=== PATIENT | female | born 1990 ===

== ENCOUNTER 2020-11-01 23:35 | Inpatient (IN) | payer SELFPAY ==
[2020-11-02] MEDS ORDERED: Acetaminophen 500 MG Tab PO ONE (00:08)
[2020-11-02] MEDS ORDERED: Sodium Chloride 0.9% 2.5 ML Syringe FLUSH PRN (01:48)
[2020-11-02] MEDS ORDERED: Water For Irrigation,Sterile 1,000 ML Container IRR PRN (01:48)
[2020-11-02] MEDS ORDERED: Misoprostol 200 MCG Tab PO PRN (01:48)
[2020-11-02] MEDS ORDERED: Ondansetron 4 MG/2 ML SDV IVPUSH PRN ×3 (01:48→20:46)
[2020-11-02] MEDS ORDERED: Lidocaine 1% 50 ML MDV INJECT PRN (01:48)
[2020-11-02] MEDS ORDERED: Carboprost Tromethamine 250 MCG/1 ML Amp IM PRN (01:48)
[2020-11-02] MEDS ORDERED: Nalbuphine 10 MG/1 ML Vial IVPUSH PRN (01:48)
[2020-11-02] MEDS ORDERED: Methylergonovine 0.2 MG/1 ML Amp IM PRN ×3 (01:48→20:46)
[2020-11-02] MEDS ORDERED: Sodium Chloride 0.9% 10 ML Syringe FLUSH PRN (01:48)
[2020-11-02] MEDS ORDERED: Ampicillin 2 GM in Sodium Chloride 0.9% 100 ML IV ONE (01:48)
[2020-11-02] MEDS ORDERED: Misoprostol 25 MCG (1/4 of 100 MCG) Tab VAG PRN ×2 (01:48)
[2020-11-02] MEDS ORDERED: Tranexamic Acid 1,000 MG in Sodium Chloride 0.9% 100 ML IV PRN ×3 (01:48→20:46)
[2020-11-02] MEDS ORDERED: Sodium Chloride 0.9% 10 ML SDV IV PRN (01:48)
[2020-11-02] MEDS ORDERED: Terbutaline 1 MG/ML SDV SUBCUT PRN (01:48)
[2020-11-02] MEDS ORDERED: Misoprostol 25 MCG (1/4 of 100 MCG) Tab PO ONE ×2 (01:55→10:54)
[2020-11-02] MEDS ORDERED: Oxytocin/0.9 % Sodium Chloride 30 UNIT/500 ML BAG IV SCH ×2 (02:00)
[2020-11-02] MEDS: Lactated Ringers 1,000 ML IV SCH ×3 (02:50→14:45)
[2020-11-02] MEDS ORDERED: Ampicillin 1 GM in Sodium Chloride 0.9% 50 ML IV SCH (03:00)
[2020-11-02] MEDS ORDERED: Misoprostol 25 MCG (1/4 of 100 MCG) Tab PO SCH (04:00)
[2020-11-02] MEDS: Butorphanol 1 MG/ML SDV IVPUSH PRN ×2 (04:31→07:02)
--- NOTE | 2020-11-02 07:57 | PCM.LDHP ---
L&D History of Present Illness - General Date of Service: 11/02/20 Admit Problem/Dx: Patient Status Order with Admit Dx/Problem 11/01/20 23:49 Patient Status [ADT] Routine 11/02/20 01:48 Patient Status [ADT] Routine Admission Diagnosis/Problem Admission Diagnosis/Problem 11/02/20 07:52 presenting to L&D at 39 5/7 weeks (MARIA E: 11/04/20 by ultrasound) with reports of regular uterine contractions and increasing pain with contractions. SVE per nurse report on admission: long, thick, closed. O+, Rubella immune, GBS positive. Vertex presentation by Rodney. Relatively uneventful with the exception of patient's pre- BMI of >40. 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, - Infectious Disease History Infectious Disease History: Reports: Chicken Pox - Past Surgical History GI Surgical History: Reports: Appendectomy Social & Family History - Family History Family Medical History: No Pertinent Family History - Tobacco Use Tobacco Use Status *Q: Never Tobacco User Second Hand Smoke Exposure: No - Caffeine Use Caffeine Use: Reports: Coffee, Energy Drinks, Soda - Recreational Drug Use Recreational Drug Use: Yes Drug Use in Last 12 Months: No Recreational Drug Type: Reports: Marijuana/Hashish Recreational Drug Use Frequency: Rarely H&P Review of Systems - Review of Systems: Review Of Systems: See Below General: Reports: No Symptoms HEENT: Reports: No Symptoms Pulmonary: Reports: No Symptoms Cardiovascular: Reports: No Symptoms Gastrointestinal: Reports: No Symptoms Genitourinary: Reports: No Symptoms Musculoskeletal: Reports: No Symptoms Skin: Reports: No Symptoms Psychiatric: Reports: No Symptoms Neurological: Reports: No Symptoms Hematologic/Lymphatic: Reports: No Symptoms Immunologic: Reports: No Symptoms L&D Exam - Exam Exam: See Below - Vital Signs Weight: 233 lb - OB Specific Contraction Intensity: Moderate Movement: Active Heart Tones: Present Heart Rate (FHR) Variability: Moderate (6-25 bmp) Presentation: Vertex (by Rodney) - Alonso Score Alonso Score Cervix Position: Posterior Alonso Score Consistency: Firm Alonso Score Effacement: 0-30% Alonso Score Dilation: Closed Alonso Score Infant's Station: -3 Alonso Score Total: 0 - Exam General: Alert, Oriented, Cooperative Lungs: Normal Respiratory Effort Cardiovascular: Regular Rate, Regular Rhythm GI/Abdominal Exam: Soft, Non-Tender Rectal Exam: Deferred Genitourinary: Deferred Back Exam: Normal Inspection, Full Range of Motion Extremities: Normal Inspection, Normal Range of Motion, Non-Tender, Normal Capillary Refill Skin: Warm, Dry, Intact Neurological: Strength Equal Bilateral, Normal Speech, Normal Tone, Sensation Intact Psychiatric: Alert, Normal Affect, Normal Mood - Patient Data Lab Results Last 24 hrs: Laboratory Results - last 24 hr 11/01/20 11/01/20 11/02/20 Range/Units 00:00 23:45 00:20 WBC (4.0-11.0) K/uL RBC (4.30-5.90) M/uL Hgb (12.0-16.0) g/dL Hct (36.0-46.0) % MCV (80.0-98.0) fL MCH (27.0-32.0) pg MCHC (31.0-37.0) g/dL RDW Std Deviation (28.0-62.0) fl RDW Coeff of Emily (11.0-15.0) % Plt Count (150-400) K/uL MPV (7.40-12.00) fL Nucleated RBC % /100WBC Nucleated RBCs # K/uL Urine Color YELLOW Urine Appearance CLEAR Urine pH 6.0 (5.0-8.0) Ur Specific [place] 1.010 (1.001-1.035) Urine Protein NEGATIVE (NEGATIVE) mg/dL Urine Glucose (UA) NEGATIVE (NEGATIVE) mg/dL Urine Ketones 15 H (NEGATIVE) mg/dL Urine Occult Blood NEGATIVE (NEGATIVE) Urine Nitrite NEGATIVE (NEGATIVE) Urine Bilirubin NEGATIVE (NEGATIVE) Urine Urobilinogen 0.2 (<2.0) EU/dL Ur Leukocyte Esterase NEGATIVE (NEGATIVE) Urine RBC 0-2 (0-2/HPF) Urine WBC 0-2 (0-5/HPF) Ur Epithelial Cells FEW (NONE-FEW) Urine Bacteria FEW (NEGATIVE) Membrane Rupture NEGATIVE SARS-CoV-2 RNA (ANU) NEGATIVE (NEGATIVE) Blood Type Antibody Screen 11/02/20 11/02/20 Range/Units 02:30 02:30 WBC 16.95 H (4.0-11.0) K/uL RBC 4.39 (4.30-5.90) M/uL Hgb 13.6 (12.0-16.0) g/dL Hct 39.4 (36.0-46.0) % MCV 89.7 (80.0-98.0) fL MCH 31.0 (27.0-32.0) pg MCHC 34.5 (31.0-37.0) g/dL RDW Std Deviation 44.2 (28.0-62.0) fl RDW Coeff of Emily 13 (11.0-15.0) % Plt Count 239 (150-400) K/uL MPV 10.80 (7.40-12.00) fL Nucleated RBC % 0.0 /100WBC Nucleated RBCs # 0 K/uL Urine Color Urine Appearance Urine pH (5.0-8.0) Ur Specific [place] (1.001-1.035) Urine Protein (NEGATIVE) mg/dL Urine Glucose (UA) (NEGATIVE) mg/dL Urine Ketones (NEGATIVE) mg/dL Urine Occult Blood (NEGATIVE) Urine Nitrite (NEGATIVE) Urine Bilirubin (NEGATIVE) Urine Urobilinogen (<2.0) EU/dL Ur Leukocyte Esterase (NEGATIVE) Urine RBC (0-2/HPF) Urine WBC (0-5/HPF) Ur Epithelial Cells (NONE-FEW) Urine Bacteria (NEGATIVE) Membrane Rupture SARS-CoV-2 RNA (ANU) (NEGATIVE) Blood Type O POSITIVE Antibody Screen NEGATIVE Result Diagrams: 11/02/20 02:30 - Problem List (1) Supervision of normal IUP (intrauterine ) in primigravida SNOMED Code(s): 41043956, 575825988, 467582020, 160082452 ICD Code: Z34.00 - ENCNTR FOR SUPRVSN OF NORMAL FIRST , UNSP TRIMESTER Status: Acute Priority: High Current Visit: Yes Qualifiers: Trimester: third trimester Qualified Code(s): Z34.03 - Encounter for supervision of normal first , third trimester (2) Obesity affecting in third trimester SNOMED Code(s): 445871820899, 303666774439 ICD Code: O99.213 - OBESITY COMPLICATING , THIRD TRIMESTER Status: Acute Priority: High Current Visit: Yes Problem List Initiated/Reviewed/Updated: Yes Orders Last 24hrs: Active Orders 24 hr Category Date Time Status Patient Status [ADT] Routine ADT 11/02/20 01:48 Active Bedrest Bathroom Privileges [RC] ASDIRECTED Care 11/02/20 01:48 Active Communication Order [RC] ASDIRECTED Care 11/02/20 01:48 Active Communication Order [RC] ASDIRECTED Care 11/02/20 01:48 Active Communication Order [RC] ASDIRECTED Care 11/02/20 01:48 Active May Shower [RC] ASDIRECTED Care 11/02/20 01:48 Active Notify Provider [RC] PRN Care 11/02/20 01:48 Active Notify Provider [RC] PRN Care 11/02/20 01:48 Active Notify Provider [RC] PRN Care 11/02/20 01:48 Active Notify Provider [RC] STAT Care 11/02/20 01:48 Active Oxygen Therapy [RC] ASDIRECTED Care 11/02/20 01:48 Active Up ad Aktja [RC] ASDIRECTED Care 11/02/20 01:48 Active Vaginal Exam [RC] PRN Care 11/02/20 01:48 Active Vaginal Exam [RC] PRN Care 11/02/20 01:48 Active Vital Signs [RC] PER UNIT ROUTINE Care 11/01/20 23:49 Active Vital Signs [RC] PER UNIT ROUTINE Care 11/02/20 01:48 Active Vital Signs [RC] PER UNIT ROUTINE Care 11/02/20 01:48 Active Clear Liquid Diet [DIET] Diet 11/02/20 Breakfast Active RPR (SYPHILIS SERO) W/ RFLX [REF] Routine Lab 11/02/20 02:30 Received Ampicillin 1 gm Med 11/02/20 03:00 Active Sodium Chloride 0.9% [Normal Saline] 50 ml IV Q4H Butorphanol [Stadol] Med 11/02/20 01:48 Active 1 mg IVPUSH Q1H PRN Carboprost Tromethamine [Hemabate DS] Med 11/02/20 01:48 Active 250 mcg IM ASDIRECTED PRN Lactated Ringers [Ringers, Lactated] 1,000 ml Med 11/02/20 02:00 Active IV ASDIRECTED Lidocaine 1% [Xylocaine 1%] Med 11/02/20 01:48 Active 50 ml INJECT ONETIME PRN Methylergonovine [Methergine] Med 11/02/20 01:48 Active 0.2 mg IM ASDIRECTED PRN Nalbuphine [Nubain] Med 11/02/20 01:48 Active 10 mg IVPUSH Q1H PRN Ondansetron [Zofran] Med 11/02/20 01:48 Active 4 mg IVPUSH Q6H PRN Oxytocin/0.9 % Sodium Chloride [Oxytocin 30 Unit/500 ML Med 11/02/20 02:00 A ctive -NS] 30 unit in 500 ml IV TITRATE Oxytocin/0.9 % Sodium Chloride [Oxytocin 30 Unit/500 ML Med 11/02/20 02:00 Active -NS] 30 unit in 500 ml IV TITRATE Sodium Chloride 0.9% [Normal Saline] Med 11/02/20 01:48 Active 10 ml IV ASDIRECTED PRN Sodium Chloride 0.9% [Saline Flush] Med 11/02/20 01:48 Active 10 ml FLUSH ASDIRECTED PRN Sodium Chloride 0.9% [Saline Flush] Med 11/02/20 01:48 Active 2.5 ml FLUSH ASDIRECTED PRN Terbutaline [Brethine] Med 11/02/20 01:48 Active 0.25 mg SUBCUT ASDIRECTED PRN Tranexamic Acid [Cyklokapron] 1,000 mg Med 11/02/20 01:48 Active Sodium Chloride 0.9% [Normal Saline] 100 ml IV ONETIME Water For Irrigation,Sterile [Sterile Water for Med 11/02/20 01:48 Active Irrigation] 1,000 ml IRR ASDIRECTED PRN miSOPROStoL [Cytotec] Med 11/02/20 01:48 Active 200 mcg PO ONETIME PRN miSOPROStoL [Cytotec] Med 11/02/20 04:00 Active 25 mcg PO Q4HR miSOPROStoL [Cytotec] Med 11/02/20 01:48 Active 25 mcg VAG ONETIME PRN miSOPROStoL [Cytotec] Med 11/02/20 01:48 Active 25 mcg VAG Q4H PRN Scalp Electrode [WOMSER] Per Unit Routine Oth 11/02/20 01:48 Ordered Medication Administration Instruction [OM.PC] Q3H Oth 11/02/20 02:00 Ordered Peripheral IV Insertion Adult [OM.PC] Routine Oth 11/02/20 01:48 Ordered Resuscitation Status Routine Resus Stat 11/01/20 23:49 Ordered Medication Orders Butorphanol Tartrate (Stadol) 1 mg IVPUSH Q1H PRN PRN Reason: Pain Last Admin: 11/02/20 07:02 Dose: 1 mg Documented by: Admin: 11/02/20 04:31 Dose: 1 mg Documented by: JACQUELINE Carboprost Tromethamine (Hemabate Ds) 250 mcg IM ASDIRECTED PRN PRN Reason: Post Hemorrhage Lactated Ringer's (Ringers, Lactated) 1,000 mls @ 150 mls/hr IV ASDIRECTED FRANCISCO Last Admin: 11/02/20 02:50 Dose: 150 mls/hr Documented by: JACQUELINE Oxytocin/Sodium Chloride (Oxytocin 30 Unit/500 Ml-Ns) 30 unit in 500 mls @ 999 mls/hr IV TITRATE FRANCISCO Tranexamic Acid 1,000 mg/ (Sodium Chloride) 110 mls @ 660 mls/hr IV ONETIME PRN PRN Reason: Bleeding Oxytocin/Sodium Chloride (Oxytocin 30 Unit/500 Ml-Ns) 30 unit in 500 mls @ 2 mls/hr IV TITRATE [facility]; Protocol Ampicillin Sodium 1 gm/ Sodium (Chloride) 50 mls @ 100 mls/hr IV Q4H FRANCISCO Last Admin: 11/02/20 06:55 Dose: 100 mls/hr Documented by: JACQUELINE Lidocaine HCl (Xylocaine 1%) 50 ml INJECT ONETIME PRN PRN Reason: Laceration repair Methylergonovine Maleate (Methergine) 0.2 mg IM ASDIRECTED PRN PRN Reason: Post Hemorrhage Misoprostol (Cytotec) 200 mcg PO ONETIME PRN PRN Reason: Post Hemorrhage Misoprostol (Cytotec) 25 mcg VAG ONETIME PRN PRN Reason: Cervical Ripening Last Admin: 11/02/20 03:31 Dose: 25 mcg Documented by: JACQUELINE Misoprostol (Cytotec) 25 mcg VAG Q4H PRN PRN Reason: Cervical Ripening Misoprostol (Cytotec) 25 mcg PO Q4HR FRANCISCO Nalbuphine HCl (Nubain) 10 mg IVPUSH Q1H PRN PRN Reason: Pain (severe 7-10) Ondansetron HCl (Zofran) 4 mg IVPUSH Q6H PRN PRN Reason: Nausea/Vomiting Sodium Chloride (Saline Flush) 10 ml FLUSH ASDIRECTED PRN PRN Reason: Keep Vein Open Sodium Chloride (Saline Flush) 2.5 ml FLUSH ASDIRECTED PRN PRN Reason: Keep Vein Open Sodium Chloride (Normal Saline) 10 ml IV ASDIRECTED PRN PRN Reason: IV Use Sterile Water (Sterile Water For Irrigation) 1,000 ml IRR ASDIRECTED PRN PRN Reason: delivery Terbutaline Sulfate (Brethine) 0.25 mg SUBCUT ASDIRECTED PRN PRN Reason: Tacysystole Assessment/Plan Comment:: Admit A: presenting to L&D at 39 5/7 weeks (MARIA E: 11/04/20 by ultrasound) with reports of regular uterine contractions and increasing pain with contractions (rated 8/10). SVE per nurse report on admission: long, thick, closed. O+, Rubella immune, GBS positive. Vertex presentation by Polo's. Relatively uneventful with the exception of patient's pre- BMI of >40; scheduled for IOL orginally scheduled for 11/04/20 @ 0001; discussed with patie nt that due to the snow and availability, we would like to keep her and proceed with her elective induction now; patient agreeable P: Admit; anticipate ; cytotec to pitocin; epidural PRN; Dr. Pabon updated.
[2020-11-02] MEDS ORDERED: fentaNYL 100 MCG/2 ML SDV ONE ×2 (08:03→18:30)
[2020-11-02] MEDS ORDERED: Ropivacaine HCl/PF 0 ML ONE (08:04)
[2020-11-02] MEDS ORDERED: Lidocaine 1% 50 ML MDV ONE (08:05)
--- NOTE | 2020-11-02 09:03 | PCM.PREANE ---
Preanesthetic Assessment - Procedure Proposed Procedure: Continuous Labor Epidural - Anesthesia/Transfusion/Family Hx Anesthesia History: Prior Anesthesia Without Reaction Transfusion History: No Prior Transfusion(s) - Review of Systems General: No Symptoms Pulmonary: No Symptoms Cardiovascular: No Symptoms Gastrointestinal: No Symptoms Neurological: No Symptoms Other: Reports: None - Physical Assessment Height: 5 ft 2 in Weight: 105.687 kg ASA Class: 3 Mental Status: Alert & Oriented x3 Airway Class: Mallampati = 3 Dentition: Reports: Normal Dentition Thyro-Mental Finger Breadths: 3 Mouth Opening Finger Breadths: 3 ROM/Head Extension: Full Lungs: Clear to Auscultation, Normal Respiratory Effort Cardiovascular: Regular Rate, Regular Rhythm - Lab Values: Laboratory Last Values WBC 16.95 K/uL (4.0-11.0) H 11/02/20 02:30 RBC 4.39 M/uL (4.30-5.90) 11/02/20 02:30 Hgb 13.6 g/dL (12.0-16.0) 11/02/20 02:30 Hct 39.4 % (36.0-46.0) 11/02/20 02:30 MCV 89.7 fL (80.0-98.0) 11/02/20 02:30 MCH 31.0 pg (27.0-32.0) 11/02/20 02:30 MCHC 34.5 g/dL (31.0-37.0) 11/02/20 02:30 RDW Std Deviation 44.2 fl (28.0-62.0) 11/02/20 02:30 RDW Coeff of Emily 13 % (11.0-15.0) 11/02/20 02:30 Plt Count 239 K/uL (150-400) 11/02/20 02:30 MPV 10.80 fL (7.40-12.00) 11/02/20 02:30 Nucleated RBC % 0.0 /100WBC 11/02/20 02:30 Nucleated RBCs # 0 K/uL 11/02/20 02:30 Urine Color YELLOW 11/01/20 00:00 Urine Appearance CLEAR 11/01/20 00:00 Urine pH 6.0 (5.0-8.0) 11/01/20 00:00 Ur Specific [place] 1.010 (1.001-1.035) 11/01/20 00:00 Urine Protein NEGATIVE mg/dL (NEGATIVE) 11/01/20 00:00 Urine Glucose (UA) NEGATIVE mg/dL (NEGATIVE) 11/01/20 00:00 Urine Ketones 15 mg/dL (NEGATIVE) H 11/01/20 00:00 Urine Occult Blood NEGATIVE (NEGATIVE) 11/01/20 00:00 Urine Nitrite NEGATIVE (NEGATIVE) 11/01/20 00:00 Urine Bilirubin NEGATIVE (NEGATIVE) 11/01/20 00:00 Urine Urobilinogen 0.2 EU/dL (<2.0) 11/01/20 00:00 Ur Leukocyte Esterase NEGATIVE (NEGATIVE) 11/01/20 00:00 Urine RBC 0-2 (0-2/HPF) 11/01/20 00:00 Urine WBC 0-2 (0-5/HPF) 11/01/20 00:00 Ur Epithelial Cells FEW (NONE-FEW) 11/01/20 00:00 Urine Bacteria FEW (NEGATIVE) 11/01/20 00:00 Membrane Rupture NEGATIVE 11/01/20 23:45 SARS-CoV-2 RNA (ANU) NEGATIVE (NEGATIVE) 11/02/20 00:20 Blood Type O POSITIVE 11/02/20 02:30 Antibody Screen NEGATIVE 11/02/20 02:30 - Allergies Allergies/Adverse Reactions: Allergies Allergy/AdvReac Type Severity Reaction Status Date / Time No Known Allergies Allergy Verified 11/02/20 08:04 - Anesthesia Plan Free Text/Narrative:: Continuous Labor Epidural Pre-Op Medication Ordered: None - Acknowledgements Anesthesia Type Planned: Epidural Pt an Appropriate Candidate for the Planned Anesthesia: Yes Alternatives and Risks of Anesthesia Discussed w Pt/Guardian: Yes Pt/Guardian Understands and Agrees with Anesthesia Plan: Yes Additional Comments: Obesity BMI >40 pre- PreAnesthesia Questionnaire HEENT History: Reports: None Cardiovascular History: Reports: None Respiratory History: Reports: None Gastrointestinal History: Reports: None Genitourinary History: Reports: None 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, : 1 Para: 0 LMP (Approximate): Musculoskeletal History: Reports: None, Back Pain, Chronic (Related to large breasts.) Neurological History: Reports: None Psychiatric History: Reports: None Endocrine/Metabolic History: Reports: None Hematologic History: Reports: None Immunologic History: Reports: None Oncologic (Cancer) History: Reports: None Dermatologic History: Reports: None - Infectious Disease History Infectious Disease History: Reports: Chicken Pox - Past Surgical History HEENT Surgical History: Reports: Oral Surgery Other HEENT Surgeries/Procedures: [place] Teeth GI Surgical History: Reports: Appendectomy - SUBSTANCE USE Tobacco Use Status *Q: Never Tobacco User Second Hand Smoke Exposure: No Recreational Drug Use History: Yes Recreational Drug Type: Reports: Marijuana/Hashish - CURRENT (IN HOUSE) MEDS Current Meds: Current Medications Butorphanol Tartrate (Stadol) 1 mg IVPUSH Q1H PRN PRN Reason: Pain Last Admin: 11/02/20 07:02 Dose: 1 mg Documented by: Carboprost Tromethamine (Hemabate Ds) 250 mcg IM ASDIRECTED PRN PRN Reason: Post Hemorrhage Lactated Ringer's (Ringers, Lactated) 1,000 mls @ 150 mls/hr IV ASDIRECTED FRANCISCO Last Admin: 11/02/20 08:43 Dose: 150 mls/hr Documented by: Oxytocin/Sodium Chloride (Oxytocin 30 Unit/500 Ml-Ns) 30 unit in 500 mls @ 999 mls/hr IV TITRATE [facility] Tranexamic Acid 1,000 mg/ (Sodium Chloride) 110 mls @ 660 mls/hr IV ONETIME PRN PRN Reason: Bleeding Oxytocin/Sodium Chloride (Oxytocin 30 Unit/500 Ml-Ns) 30 unit in 500 mls @ 2 mls/hr IV TITRATE [facility]; Protocol Ampicillin Sodium 1 gm/ Sodium (Chloride) 50 mls @ 100 mls/hr IV Q4H FRANCISCO Last Admin: 11/02/20 06:55 Dose: 100 mls/hr Documented by: Lidocaine HCl (Xylocaine 1%) 50 ml INJECT ONETIME PRN PRN Reason: Laceration repair Methylergonovine Maleate (Methergine) 0.2 mg IM ASDIRECTED PRN PRN Reason: Post Hemorrhage Misoprostol (Cytotec) 200 mcg PO ONETIME PRN PRN Reason: Post Hemorrhage Misoprostol (Cytotec) 25 mcg VAG ONETIME PRN PRN Reason: Cervical Ripening Last Admin: 11/02/20 03:31 Dose: 25 mcg Documented by: Misoprostol (Cytotec) 25 mcg VAG Q4H PRN PRN Reason: Cervical Ripening Misoprostol (Cytotec) 25 mcg PO Q4HR FRANCISCO Nalbuphine HCl (Nubain) 10 mg IVPUSH Q1H PRN PRN Reason: Pain (severe 7-10) Ondansetron HCl (Zofran) 4 mg IVPUSH Q6H PRN PRN Reason: Nausea/Vomiting Sodium Chloride (Saline Flush) 10 ml FLUSH ASDIRECTED PRN PRN Reason: Keep Vein Open Sodium Chloride (Saline Flush) 2.5 ml FLUSH ASDIRECTED PRN PRN Reason: Keep Vein Open Sodium Chloride (Normal Saline) 10 ml IV ASDIRECTED PRN PRN Reason: IV Use Sterile Water (Sterile Water For Irrigation) 1,000 ml IRR ASDIRECTED PRN PRN Reason: delivery Terbutaline Sulfate (Brethine) 0.25 mg SUBCUT ASDIRECTED PRN PRN Reason: Tacysystole Discontinued Medications Acetaminophen (Tylenol Extra Strength) 1,000 mg PO ONETIME ONE Stop: 11/02/20 00:09 Last Admin: 11/02/20 00:19 Dose: 1,000 mg Documented by: Fentanyl (Sublimaze) Confirm Administered Dose 200 mcg .ROUTE .STK-MED ONE Stop: 11/02/20 08:04 Ampicillin Sodium 2 gm/ Sodium (Chloride) 100 mls @ 200 mls/hr IV ONETIME ONE Stop: 11/02/20 02:17 Last Admin: 11/02/20 02:51 Dose: 200 mls/hr Documented by: Ropivacaine (Naropin 0.2%) Confirm Administered Dose 100 mls @ as directed .ROUTE .STK-MED ONE Stop: 11/02/20 08:05 Lidocaine HCl (Xylocaine 1%) Confirm Administered Dose 50 ml .ROUTE .STK-MED ONE Stop: 11/02/20 08:06 Misoprostol (Cytotec) 25 mcg PO ONETIME ONE Stop: 11/02/20 01:56 Last Admin: 11/02/20 03:31 Dose: 25 mcg Documented by:
[2020-11-02] MEDS: Ampicillin 1 GM in Sodium Chloride 0.9% 50 ML IV SCH ×3 (11:10→19:05)
[2020-11-02] MEDS ORDERED: Ampicillin 1 GM Vial ONE (11:12)
[2020-11-02] MEDS ORDERED: Ropivacaine HCl/PF 100 ML ONE (18:26)
[2020-11-02] MEDS ORDERED: Bupivacaine 0.5% 30 ML SDV ONE (18:30)
--- NOTE | 2020-11-02 18:50 | PCM.SN.2 ---
- Free Text/Narrative Note: 11/02/2020: Called for epidural infusion pump alarming empty. When arrived, Amelia Lauren (provider with Dr. Pabon) mentioned patient is approaching 12 hours post rupture and there is a high incidence that Dr. Pabon could do a c/section. Talked with MAINE Kitchen and discussed plan for epidural. Patient rates pain 5/10 with contractions. Fentanyl 100mcg and 5 ml 0.5% Bupivacaine was given via epidural at 1834. 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 Vital signs remain stable. Patient rates pain 0-1/10 at 1856. Talked to patient about anesthesia process during c/section. Questions answered. 1854: Dr. Pabon called for c/section.
[2020-11-02] MEDS ORDERED: Octyl 2-Cyanoacrylate 1 Tube ONE (19:25)
[2020-11-02] MEDS ORDERED: Ondansetron 4 MG/2 ML SDV ONE (19:30)
[2020-11-02] MEDS ORDERED: Oxytocin 10 Units/1 ML SDV ONE (19:30)
[2020-11-02] MEDS ORDERED: Morphine PF 10 MG/10 ML SDV ONE (20:01)
[2020-11-02] MEDS ORDERED: Misoprostol 200 MCG Tab RECTAL PRN ×2 (20:24→20:46)
[2020-11-02] MEDS ORDERED: Oxytocin 10 Units/1 ML SDV IM PRN ×2 (20:24→20:46)
[2020-11-02] MEDS ORDERED: Lanolin 100% Cream 7 GM Tube TOP PRN ×2 (20:24→20:46)
[2020-11-02] MEDS ORDERED: Ibuprofen 800 MG Tab PO PRN (20:24)
[2020-11-02] MEDS ORDERED: diphenhydrAMINE 50 MG/ML SDV IVPUSH PRN ×2 (20:24→20:46)
[2020-11-02] MEDS ORDERED: Bisacodyl 10 MG Supp RECTAL PRN ×2 (20:24→20:46)
[2020-11-02] MEDS ORDERED: Acetaminophen/oxyCODONE 325-5 MG Tab PO PRN ×3 (20:24→20:46)
--- NOTE | 2020-11-02 20:27 | PCM.OPNOTE ---
- General Post-Op/Procedure Note Date of Surgery/Procedure: 11/02/20 Operative Procedure(s): Primary C/section. Pre Op Diagnosis: IUP term failear to progress Post-Op Diagnosis: Same Anesthesia Technique: Epidural Primary Surgeon: Richmond Pabon Beef Splitter: Amelia Fraser EBL in mLs: 750 Complications: None Condition: Good Free Text/Narrative:: Intake & Output 11/02/20 11/02/20 11/02/20 06:59 14:59 22:59 Output Total 1600 Balance -1600
[2020-11-02] MEDS ORDERED: Ketorolac 30 MG/ML SDV ONE (20:29)
[2020-11-02] MEDS ORDERED: Ketorolac 30 MG/ML SDV IVPUSH SCH (20:30)
[2020-11-02] MEDS ORDERED: Lactated Ringers 1,000 ML IV SCH ×2 (20:30→21:00)
[2020-11-02] MEDS ORDERED: Docusate Sodium 100 MG Cap PO SCH (21:00)
[2020-11-02] MEDS ORDERED: Oxytocin/Lactated Ringers 30 UNIT/500 ML BAG IV SCH (21:00)
--- NOTE | 2020-11-02 22:05 | PCM.POSTAN ---
POST ANESTHESIA ASSESSMENT - MENTAL STATUS Mental Status: Alert, Oriented - VITAL SIGNS Vital Signs: Last Vital Signs Temp 36.6 C 11/02/20 20:42 Pulse 82 11/02/20 21:12 Resp 14 11/02/20 21:12 BP 107/60 11/02/20 21:12 Pulse Ox 95 11/02/20 21:12 - RESPIRATORY Respiratory Status: Respiratory Rate WNL, Airway Patent, O2 Saturation Stable - CARDIOVASCULAR CV Status: Pulse Rate WNL, Blood Pressure Stable - GASTROINTESTINAL GI Status: No Symptoms - PAIN Pain Score: 0 - POST OP HYDRATION Hydration Status: Adequate & Stable - OBSERVATIONS Free Text/Narrative:: No anesthesia complications or concerns.
[2020-11-03] MEDS: Ketorolac 30 MG/ML SDV IVPUSH SCH ×4 (02:30→23:10)
--- NOTE | 2020-11-03 08:11 | OR ---
SURGEON: Richmond Pabon MD DATE OF PROCEDURE: 11/02/2020 PREOPERATIVE DIAGNOSES: Intrauterine at 39+ week, positive group B Streptococcus culture, meconium-stained, failure to progress. POSTOPERATIVE DIAGNOSES: Intrauterine at 39+ week, positive group B Streptococcus culture, meconium-stained, failure to progress. OPERATION PERFORMED: Primary low-transverse section. PRIMARY SURGEON: Richmond Pabon MD. NETWORK MGR: Amelia Fraser, certified nurse burrer hand. ANESTHESIA: Epidural. BLOOD LOSS: 750 mL. COMPLICATIONS: None. FINDINGS: Female fetus. score reported to be 8 and 9. The weight is not available at the time of the delivery. INDICATIONS FOR SURGERY: This patient is 30. She is primigravida. She is admitted in early active labor. She was 1 to 2 cm dilated out of the pelvis with rupture membrane and meconium stain. She had a positive GBS culture. She was started on appropriate antibiotic. We used Cytotec to augment her contraction and then Pitocin. She had epidural anesthesia for labor analgesia. The patient progressed to 4 to 5 cm continued to be out of the pelvis. In spite of adequate contractions and adequate time, the patient did not descend. A diagnosis of failure to progress is entertained, and the patient had primary section. PROCEDURE IN DETAIL: The patient was brought to the OR, properly identified, with a Knott catheter in the bladder, an adequate level of epidural anesthesia. The patient was prepped and draped in the sterile fashion as usual. A low-transverse Pfannenstiel skin incision was done. Danny fascia and rectus fascia were opened in direction of the incision. The 2 recti muscles were and peritoneal cavity was entered. A bladder flap was raised in the usual manner, pushing the bladder away from the lower uterine segment. A low-transverse uterine incision was done and extended manually with the hand. Fetus was in a vertex position, delivered without any problem. The fetus cried immediately. It was a female. scores reported to be 8 and 9. Weight was not available. Meconium was noted in the amniotic fluid. The placenta delivered spontaneous, complete, and intact. Then repair of the lower uterine segment was done with 2-0 Vicryl continuous interlocking in 2 layers, and then 3-0 Vicryl continuous was used for reperitonealization of the lower uterine segment and then the peritoneal cavity evacuated completely from all blood and blood clot, and closed with 3-0 Vicryl continuous. The rectus fascia was closed with #1 PDS, double strand continuous. Danny fascia with 3-0 Vicryl continuous. The skin closed with 3-0 Stratafix in a subcuticular fashion and Dermabond. Instrument and sponge count was correct. The patient tolerated the procedure well, went to recovery room in stable general condition. SANDRO / ANDREW /[id number]
[2020-11-03] MEDS: Docusate Sodium 100 MG Cap PO SCH ×2 (08:34→23:05)
--- NOTE | 2020-11-03 09:15 | PCM48HPAN ---
Post Anesthesia Note - EVALUATION WITHIN 48HRS OF ANESTHETIC Vital Signs in Normal Range: Yes Patient Participated in Evaluation: Yes Respiratory Function Stable: Yes Airway Patent: Yes Cardiovascular Function Stable: Yes Hydration Status Stable: Yes Pain Control Satisfactory: Yes Nausea and Vomiting Control Satisfactory: Yes Mental Status Recovered: Yes Vital Signs: Last Vital Signs Temp 36.3 C 11/03/20 07:30 Pulse 75 11/03/20 07:30 Resp 18 11/03/20 07:30 BP 113/68 11/03/20 07:30 Pulse Ox 96 11/03/20 07:30 - COMMENTS/OBSERVATIONS Free Text/Narrative:: Patient in bed nursing. No apparent anesthesia concerns at this time.
--- NOTE | 2020-11-03 12:38 | PCM.PNPP ---
- General Info Date of Service: 11/03/20 Admission Dx/Problem (Free Text): Patient Status Order with Admit Dx/Problem 11/01/20 23:49 Patient Status [ADT] Routine 11/02/20 01:48 Patient Status [ADT] Routine Admission Diagnosis/Problem Admission Diagnosis/Problem 11/02/20 07:52 Niurka is a 30 yo PPD0 S/P primary LTCS due to failure to progress during IOL to term NBF at 39+5 weeks gestation. O pos, RI, GBS pos with adequate ampicillin prophylaxis prior to . Patient has no complaints or concerns at this time. Patient is breast feeding well, resting comfortably in bed with in nursery. Patient reports she is eating independently; has not ambulated post-op, urinary catheter still in place. Patient denies any problems or concerns at this time except fatigue and mild-moderate post-operative pain relieved with ketorelac IV; plan to start PO pain regimen this evening. RN reports scant small vaginal bleeding with no clots. Low transverse incision MAIA dressing clean, dry, intact, scant old blood noted. 11/02/20 07:57 Functional Status: Reports: Pain Controlled - Review of Systems General: Reports: No Symptoms HEENT: Reports: No Symptoms Pulmonary: Reports: No Symptoms Cardiovascular: Reports: No Symptoms Gastrointestinal: Reports: No Symptoms Genitourinary: Reports: No Symptoms Musculoskeletal: Reports: No Symptoms Skin: Reports: No Symptoms Neurological: Reports: No Symptoms Psychiatric: Reports: No Symptoms - General Info Date of Service: 11/03/20 - Patient Data Vital Signs - Most Recent: Last Vital Signs Temp 97.3 F 11/03/20 07:30 Pulse 75 11/03/20 07:30 Resp 18 11/03/20 07:30 BP 113/68 11/03/20 07:30 Pulse Ox 96 11/03/20 07:30 Weight - Most Recent: 233 lb I&O - Last 24 Hours: Intake & Output 11/02/20 11/03/20 11/03/20 22:59 06:59 14:59 Intake Total 700 1000 Output Total 1700 500 Balance -1000 500 Lab Results - Last 24 Hours: Laboratory Results - last 24 hr 11/03/20 Range/Units 05:30 Hgb 11.2 L (12.0-16.0) g/dL Hct 34.0 L (36.0-46.0) % Med Orders - Current: Current Medications Bisacodyl (Dulcolax) 10 mg RECTAL ONETIME PRN PRN Reason: Constipation Diphenhydramine HCl (Benadryl) 25 mg IVPUSH Q6H PRN PRN Reason: Itching or Nausea Docusate Sodium (Colace) 100 mg PO BID [facility] Last Admin: 11/03/20 08:34 Dose: 100 mg Documented by: Emollient Ointment (Lansinoh Hpa) 0 gm TOP ASDIRECTED PRN PRN Reason: Sore Nipples Lactated Ringer's (Ringers, Lactated) 1,000 mls @ 125 mls/hr IV ASDIRECTED [facility] Last Admin: 11/02/20 23:00 Dose: 125 mls/hr Documented by: Oxytocin/Lactated Ringer's (Pitocin In Lr 30 Units/500 Ml) 30 unit in 500 mls @ 999 mls/hr IV TITRATE [facility]; Protocol Tranexamic Acid 1,000 mg/ (Sodium Chloride) 110 mls @ 660 mls/hr IV ONETIME PRN PRN Reason: Bleeding Ibuprofen (Motrin) 800 mg PO Q8H PRN PRN Reason: mild pain or fever Ketorolac Tromethamine (Toradol) 30 mg IVPUSH Q6H [facility] Stop: 11/03/20 21:01 Last Admin: 11/03/20 08:34 Dose: 30 mg Documented by: Methylergonovine Maleate (Methergine) 0.2 mg IM ONETIME PRN PRN Reason: Excessive Vaginal Bleeding Misoprostol (Cytotec) 1,000 mcg RECTAL ONETIME PRN PRN Reason: excessive bleeding Ondansetron HCl (Zofran) 4 mg IVPUSH Q4H PRN PRN Reason: Nausea/Vomiting Oxycodone/Acetaminophen (Percocet 325-5 Mg) 1 tab PO Q4H PRN PRN Reason: Pain (moderate 4-6) Oxycodone/Acetaminophen (Percocet 325-5 Mg) 2 tab PO Q4H PRN PRN Reason: Pain (moderate 4-6) Oxytocin (Pitocin) 10 unit IM ASDIRECTED PRN PRN Reason: Excessive Vaginal Bleeding Discontinued Medications Acetaminophen (Tylenol Extra Strength) 1,000 mg PO ONETIME ONE Stop: 11/02/20 00:09 Last Admin: 11/02/20 00:19 Dose: 1,000 mg Documented by: Ampicillin Sodium (Ampicillin) Confirm Administered Dose 1 gm .ROUTE .[facility]-MED ONE Stop: 11/02/20 11:13 Bisacodyl (Dulcolax) 10 mg RECTAL ONETIME PRN PRN Reason: Constipation Bupivacaine HCl (Marcaine 0.5%) Confirm Administered Dose 30 ml .ROUTE .[facility]-MED ONE Stop: 11/02/20 18:31 Butorphanol Tartrate (Stadol) 1 mg IVPUSH Q1H PRN PRN Reason: Pain Last Admin: 11/02/20 07:02 Dose: 1 mg Documented by: Carboprost Tromethamine (Hemabate Ds) 250 mcg IM ASDIRECTED PRN PRN Reason: Post Hemorrhage Diphenhydramine HCl (Benadryl) 25 mg IVPUSH Q6H PRN PRN Reason: Itching or Nausea Docusate Sodium (Colace) 100 mg PO BID [facility] Emollient Ointment (Lansinoh Hpa) 0 gm TOP ASDIRECTED PRN PRN Reason: Sore Nipples Fentanyl (Sublimaze) Confirm Administered Dose 200 mcg .ROUTE .[facility]-MED ONE Stop: 11/02/20 08:04 Fentanyl (Sublimaze) Confirm Administered Dose 100 mcg .ROUTE .[facility]-MED ONE Stop: 11/02/20 18:31 Lactated Ringer's (Ringers, Lactated) 1,000 mls @ 150 mls/hr IV ASDIRECTED [facility] Last Admin: 11/02/20 14:45 Dose: 150 mls/hr Documented by: Oxytocin/Sodium Chloride (Oxytocin 30 Unit/500 Ml-Ns) 30 unit in 500 mls @ 999 mls/hr IV TITRATE [facility] Tranexamic Acid 1,000 mg/ (Sodium Chloride) 110 mls @ 660 mls/hr IV ONETIME PRN PRN Reason: Bleeding Oxytocin/Sodium Chloride (Oxytocin 30 Unit/500 Ml-Ns) 30 unit in 500 mls @ 2 mls/hr IV TITRATE [facility]; Protocol Last Titration: 11/02/20 18:31 Dose: 0 munits/min, 0 mls/hr Documented by: Ampicillin Sodium 2 gm/ Sodium (Chloride) 100 mls @ 200 mls/hr IV ONETIME ONE Stop: 11/02/20 02:17 Last Admin: 11/02/20 02:51 Dose: 200 mls/hr Documented by: Ampicillin Sodium 1 gm/ Sodium (Chloride) 50 mls @ 100 mls/hr IV Q4H [facility] Last Admin: 11/02/20 06:55 Dose: 100 mls/hr Documented by: Ropivacaine (Naropin 0.2%) Confirm Administered Dose 0 mls @ as directed .ROUTE .[facility]-MED ONE Stop: 11/02/20 08:05 Ampicillin Sodium 1 gm/ Sodium (Chloride) 50 mls @ 100 mls/hr IV Q4H [facility] Last Admin: 11/02/20 19:05 Dose: 100 mls/hr Documented by: Ropivacaine (Naropin 0.2%) Confirm Administered Dose 100 mls @ as directed .ROUTE .[facility] ONE Stop: 11/02/20 18:27 Lactated Ringer's (Ringers, Lactated) 1,000 mls @ 125 mls/hr IV ASDIRECTED [facility] Tranexamic Acid 1,000 mg/ (Sodium Chloride) 110 mls @ 660 mls/hr IV ONETIME PRN PRN Reason: Bleeding Ibuprofen (Motrin) 800 mg PO Q8H PRN PRN Reason: mild pain or fever Ketorolac Tromethamine (Toradol) 30 mg IVPUSH Q6H [facility] Stop: 11/03/20 20:31 Ketorolac Tromethamine (Toradol) Confirm Administered Dose 30 mg .ROUTE .ST-MED ONE Stop: 11/02/20 20:30 Lidocaine HCl (Xylocaine 1%) 50 ml INJECT ONETIME PRN PRN Reason: Laceration repair Lidocaine HCl (Xylocaine 1%) Confirm Administered Dose 50 ml .ROUTE .ST-MED ONE Stop: 11/02/20 08:06 Methylergonovine Maleate (Methergine) 0.2 mg IM ASDIRECTED PRN PRN Reason: Post Hemorrhage Methylergonovine Maleate (Methergine) 0.2 mg IM ONETIME PRN PRN Reason: Excessive Vaginal Bleeding Misoprostol (Cytotec) 200 mcg PO ONETIME PRN PRN Reason: Post Hemorrhage Misoprostol (Cytotec) 25 mcg VAG ONETIME PRN PRN Reason: Cervical Ripening Last Admin: 11/02/20 03:31 Dose: 25 mcg Documented by: Misoprostol (Cytotec) 25 mcg VAG Q4H PRN PRN Reason: Cervical Ripening Misoprostol (Cytotec) 25 mcg PO ONETIME ONE Stop: 11/02/20 01:56 Last Admin: 11/02/20 03:31 Dose: 25 mcg Documented by: Misoprostol (Cytotec) 25 mcg PO Q4HR [facility] Misoprostol (Cytotec) 50 mcg PO ONETIME ONE Stop: 11/02/20 10:55 Misoprostol (Cytotec) 1,000 mcg RECTAL ONETIME PRN PRN Reason: excessive bleeding Morphine Sulfate (Duramorph Pf) Confirm Administered Dose 10 mg .ROUTE .STK-MED ONE Stop: 11/02/20 20:02 Nalbuphine HCl (Nubain) 10 mg IVPUSH Q1H PRN PRN Reason: Pain (severe 7-10) Octyl Cyanoacrylate (Dermabond Advance) Confirm Administered Dose 1 applic .ROUTE .[facility] ONE Stop: 11/02/20 19:26 Ondansetron HCl (Zofran) 4 mg IVPUSH Q6H PRN PRN Reason: Nausea/Vomiting Ondansetron HCl (Zofran) Confirm Administered Dose 4 mg .ROUTE .[facility] ONE Stop: 11/02/20 19:31 Ondansetron HCl (Zofran) 4 mg IVPUSH Q4H PRN PRN Reason: Nausea/Vomiting Oxycodone/Acetaminophen (Percocet 325-5 Mg) 1 tab PO Q4H PRN PRN Reason: Pain (moderate 4-6) Oxycodone/Acetaminophen (Percocet 325-5 Mg) 2 tab PO Q4H PRN PRN Reason: Pain (moderate 4-6) Oxytocin (Pitocin) Confirm Administered Dose 10 unit .ROUTE .STK-MED ONE Stop: 11/02/20 19:31 Oxytocin (Pitocin) 10 unit IM ASDIRECTED PRN PRN Reason: Excessive Vaginal Bleeding Sodium Chloride (Saline Flush) 10 ml FLUSH ASDIRECTED PRN PRN Reason: Keep Vein Open Sodium Chloride (Saline Flush) 2.5 ml FLUSH ASDIRECTED PRN PRN Reason: Keep Vein Open Sodium Chloride (Normal Saline) 10 ml IV ASDIRECTED PRN PRN Reason: IV Use Sterile Water (Sterile Water For Irrigation) 1,000 ml IRR ASDIRECTED PRN PRN Reason: delivery Terbutaline Sulfate (Brethine) 0.25 mg SUBCUT ASDIRECTED PRN PRN Reason: Tacysystole - Infant Interaction Disposition, : to Nursery Infant Interaction: Not Interacting Feeding: Breastfed ; Nursed Well, Continues to Breastfeed, Encouraged to Breastfeed Support Person: - Recovery Exam Fundal Tone: Firm Fundal Level: 1 Fingerbreadths Below Umbilicus Fundal Placement: Midline Lochia Amount: Scant, Small Lochia Color: Rubra/Red Perineum Description: Intact, Minimal Bruising/Swelling Episiotomy/Laceration: None Bladder Status: Indwelling Catheter in Place Urinary Elimination: Indwelling Catheter - Exam General: Oriented, Cooperative, No Acute Distress, Other (Drowsiness) HEENT: Pupils Equal, Pupils Reactive, Mucous Membr. Moist/[place] Neck: Supple Lungs: Clear to Auscultation, Normal Respiratory Effort Cardiovascular: Regular Rate, Regular Rhythm GI/Abdominal Exam: Normal Bowel Sounds, Soft, Non-Tender, No Organomegaly, No Distention, No Abnormal Bruit, No Mass, Pelvis Stable Extremities: Normal Inspection, Normal Range of Motion, Non-Tender, No Pedal Edema, Normal Capillary Refill Skin: Warm, Dry, Intact Wound/Incisions: Dressing Dry and Intact Neurological: No New Focal Deficit Psy/Mental Status: Alert, Normal Affect, Normal Mood - Problem List & Annotations (1) Status post primary low transverse section SNOMED Code(s): 852224442, [id number], [id number], [id number], [id number] Code(s): Z98.891 - HISTORY OF UTERINE SCAR FROM PREVIOUS SURGERY Status: Acute Priority: High Current Visit: Yes (2) Lactating mother SNOMED Code(s): 195065356, 045525507 Code(s): Z39.1 - ENCOUNTER FOR CARE AND EXAMINATION OF LACTATING MOTHER Status: Acute Priority: High Current Visit: Yes - Problem List Review Problem List Initiated/Reviewed/Updated: Yes - Plan Plan:: Hemodynamically stable, afebrile. Hemoglobin 11.2, stable. Continue IV and subsequent PO analgesia as ordered. Continue EBFing, eating. Plan to ambulate with assistance today, d/c cardona catheter today after ambulation. Plan to ambulate 3-5 times daily. Continue with course of care S/P primary LTCS. Dr. Pabon notified and agreeable with POC.
--- NOTE | 2020-11-03 13:13 | PCM.SURGPN ---
- General Info Date of Service: 11/03/20 POD#: 1 Functional Status: Reports: Pain Controlled - Review of Systems General: Reports: No Symptoms HEENT: Reports: No Symptoms Pulmonary: Reports: No Symptoms Cardiovascular: Reports: No Symptoms Gastrointestinal: Reports: No Symptoms Genitourinary: Reports: No Symptoms Musculoskeletal: Reports: No Symptoms Skin: Reports: No Symptoms Neurological: Reports: No Symptoms Psychiatric: Reports: No Symptoms - Patient Data Vitals - Most Recent: Last Vital Signs Temp 36.5 C 11/03/20 12:45 Pulse 82 11/03/20 12:45 Resp 18 11/03/20 12:45 BP 106/64 11/03/20 12:45 Pulse Ox 96 11/03/20 12:45 Weight - Most Recent: 105.687 kg I&O - Last 24 Hours: Intake & Output 11/02/20 11/03/20 11/03/20 22:59 06:59 14:59 Intake Total 700 1000 Output Total 1242 481 0900 Balance -1000 500 -2850 Lab Results Last 24 Hrs: Laboratory Results - last 24 hr 11/03/20 Range/Units 05:30 Hgb 11.2 L (12.0-16.0) g/dL Hct 34.0 L (36.0-46.0) % Med Orders - Current: Current Medications Bisacodyl (Dulcolax) 10 mg RECTAL ONETIME PRN PRN Reason: Constipation Diphenhydramine HCl (Benadryl) 25 mg IVPUSH Q6H PRN PRN Reason: Itching or Nausea Docusate Sodium (Colace) 100 mg PO BID [facility] Last Admin: 11/03/20 08:34 Dose: 100 mg Documented by: Emollient Ointment (Lansinoh Hpa) 0 gm TOP ASDIRECTED PRN PRN Reason: Sore Nipples Lactated Ringer's (Ringers, Lactated) 1,000 mls @ 125 mls/hr IV ASDIRECTED [facility] Last Admin: 11/02/20 23:00 Dose: 125 mls/hr Documented by: Oxytocin/Lactated Ringer's (Pitocin In Lr 30 Units/500 Ml) 30 unit in 500 mls @ 999 mls/hr IV TITRATE [facility]; Protocol Tranexamic Acid 1,000 mg/ (Sodium Chloride) 110 mls @ 660 mls/hr IV ONETIME PRN PRN Reason: Bleeding Ibuprofen (Motrin) 800 mg PO Q8H PRN PRN Reason: mild pain or fever Ketorolac Tromethamine (Toradol) 30 mg IVPUSH Q6H [facility] Stop: 11/03/20 21:01 Last Admin: 11/03/20 08:34 Dose: 30 mg Documented by: Methylergonovine Maleate (Methergine) 0.2 mg IM ONETIME PRN PRN Reason: Excessive Vaginal Bleeding Misoprostol (Cytotec) 1,000 mcg RECTAL ONETIME PRN PRN Reason: excessive bleeding Ondansetron HCl (Zofran) 4 mg IVPUSH Q4H PRN PRN Reason: Nausea/Vomiting Oxycodone/Acetaminophen (Percocet 325-5 Mg) 1 tab PO Q4H PRN PRN Reason: Pain (moderate 4-6) Oxycodone/Acetaminophen (Percocet 325-5 Mg) 2 tab PO Q4H PRN PRN Reason: Pain (moderate 4-6) Oxytocin (Pitocin) 10 unit IM ASDIRECTED PRN PRN Reason: Excessive Vaginal Bleeding Discontinued Medications Acetaminophen (Tylenol Extra Strength) 1,000 mg PO ONETIME ONE Stop: 11/02/20 00:09 Last Admin: 11/02/20 00:19 Dose: 1,000 mg Documented by: Ampicillin Sodium (Ampicillin) Confirm Administered Dose 1 gm .ROUTE .[facility]K-MED ONE Stop: 11/02/20 11:13 Bisacodyl (Dulcolax) 10 mg RECTAL ONETIME PRN PRN Reason: Constipation Bupivacaine HCl (Marcaine 0.5%) Confirm Administered Dose 30 ml .ROUTE .[facility]-MED ONE Stop: 11/02/20 18:31 Butorphanol Tartrate (Stadol) 1 mg IVPUSH Q1H PRN PRN Reason: Pain Last Admin: 11/02/20 07:02 Dose: 1 mg Documented by: Carboprost Tromethamine (Hemabate Ds) 250 mcg IM ASDIRECTED PRN PRN Reason: Post Hemorrhage Diphenhydramine HCl (Benadryl) 25 mg IVPUSH Q6H PRN PRN Reason: Itching or Nausea Docusate Sodium (Colace) 100 mg PO BID [facility] Emollient Ointment (Lansinoh Hpa) 0 gm TOP ASDIRECTED PRN PRN Reason: Sore Nipples Fentanyl (Sublimaze) Confirm Administered Dose 200 mcg .ROUTE .[facility] ONE Stop: 11/02/20 08:04 Fentanyl (Sublimaze) Confirm Administered Dose 100 mcg .ROUTE .[facility] ONE Stop: 11/02/20 18:31 Lactated Ringer's (Ringers, Lactated) 1,000 mls @ 150 mls/hr IV ASDIRECTED [facility] Last Admin: 11/02/20 14:45 Dose: 150 mls/hr Documented by: Oxytocin/Sodium Chloride (Oxytocin 30 Unit/500 Ml-Ns) 30 unit in 500 mls @ 999 mls/hr IV TITRATE [facility] Tranexamic Acid 1,000 mg/ (Sodium Chloride) 110 mls @ 660 mls/hr IV ONETIME PRN PRN Reason: Bleeding Oxytocin/Sodium Chloride (Oxytocin 30 Unit/500 Ml-Ns) 30 unit in 500 mls @ 2 mls/hr IV TITRATE [facility]; Protocol Last Titration: 11/02/20 18:31 Dose: 0 munits/min, 0 mls/hr Documented by: Ampicillin Sodium 2 gm/ Sodium (Chloride) 100 mls @ 200 mls/hr IV ONETIME ONE Stop: 11/02/20 02:17 Last Admin: 11/02/20 02:51 Dose: 200 mls/hr Documented by: Ampicillin Sodium 1 gm/ Sodium (Chloride) 50 mls @ 100 mls/hr IV Q4H [facility] Last Admin: 11/02/20 06:55 Dose: 100 mls/hr Documented by: Ropivacaine (Naropin 0.2%) Confirm Administered Dose 0 mls @ as directed .ROUTE .[facility] ONE Stop: 11/02/20 08:05 Ampicillin Sodium 1 gm/ Sodium (Chloride) 50 mls @ 100 mls/hr IV Q4H [facility] Last Admin: 11/02/20 19:05 Dose: 100 mls/hr Documented by: Ropivacaine (Naropin 0.2%) Confirm Administered Dose 100 mls @ as directed .ROUTE .[facility] ONE Stop: 11/02/20 18:27 Lactated Ringer's (Ringers, Lactated) 1,000 mls @ 125 mls/hr IV ASDIRECTED [facility] Tranexamic Acid 1,000 mg/ (Sodium Chloride) 110 mls @ 660 mls/hr IV ONETIME PRN PRN Reason: Bleeding Ibuprofen (Motrin) 800 mg PO Q8H PRN PRN Reason: mild pain or fever Ketorolac Tromethamine (Toradol) 30 mg IVPUSH Q6H [facility] Stop: 11/03/20 20:31 Ketorolac Tromethamine (Toradol) Confirm Administered Dose 30 mg .ROUTE .[facility]-MED ONE Stop: 11/02/20 20:30 Lidocaine HCl (Xylocaine 1%) 50 ml INJECT ONETIME PRN PRN Reason: Laceration repair Lidocaine HCl (Xylocaine 1%) Confirm Administered Dose 50 ml .ROUTE .[facility]-MED ONE Stop: 11/02/20 08:06 Methylergonovine Maleate (Methergine) 0.2 mg IM ASDIRECTED PRN PRN Reason: Post Hemorrhage Methylergonovine Maleate (Methergine) 0.2 mg IM ONETIME PRN PRN Reason: Excessive Vaginal Bleeding Misoprostol (Cytotec) 200 mcg PO ONETIME PRN PRN Reason: Post Hemorrhage Misoprostol (Cytotec) 25 mcg VAG ONETIME PRN PRN Reason: Cervical Ripening Last Admin: 11/02/20 03:31 Dose: 25 mcg Documented by: Misoprostol (Cytotec) 25 mcg VAG Q4H PRN PRN Reason: Cervical Ripening Misoprostol (Cytotec) 25 mcg PO ONETIME ONE Stop: 11/02/20 01:56 Last Admin: 11/02/20 03:31 Dose: 25 mcg Documented by: Misoprostol (Cytotec) 25 mcg PO Q4HR [facility] Misoprostol (Cytotec) 50 mcg PO ONETIME ONE Stop: 11/02/20 10:55 Misoprostol (Cytotec) 1,000 mcg RECTAL ONETIME PRN PRN Reason: excessive bleeding Morphine Sulfate (Duramorph Pf) Confirm Administered Dose 10 mg .ROUTE .STK-MED ONE Stop: 11/02/20 20:02 Nalbuphine HCl (Nubain) 10 mg IVPUSH Q1H PRN PRN Reason: Pain (severe 7-10) Octyl Cyanoacrylate (Dermabond Advance) Confirm Administered Dose 1 applic .ROUTE .STK-MED ONE Stop: 11/02/20 19:26 Ondansetron HCl (Zofran) 4 mg IVPUSH Q6H PRN PRN Reason: Nausea/Vomiting Ondansetron HCl (Zofran) Confirm Administered Dose 4 mg .ROUTE .[facility] ONE Stop: 11/02/20 19:31 Ondansetron HCl (Zofran) 4 mg IVPUSH Q4H PRN PRN Reason: Nausea/Vomiting Oxycodone/Acetaminophen (Percocet 325-5 Mg) 1 tab PO Q4H PRN PRN Reason: Pain (moderate 4-6) Oxycodone/Acetaminophen (Percocet 325-5 Mg) 2 tab PO Q4H PRN PRN Reason: Pain (moderate 4-6) Oxytocin (Pitocin) Confirm Administered Dose 10 unit .ROUTE .[facility] ONE Stop: 11/02/20 19:31 Oxytocin (Pitocin) 10 unit IM ASDIRECTED PRN PRN Reason: Excessive Vaginal Bleeding Sodium Chloride (Saline Flush) 10 ml FLUSH ASDIRECTED PRN PRN Reason: Keep Vein Open Sodium Chloride (Saline Flush) 2.5 ml FLUSH ASDIRECTED PRN PRN Reason: Keep Vein Open Sodium Chloride (Normal Saline) 10 ml IV ASDIRECTED PRN PRN Reason: IV Use Sterile Water (Sterile Water For Irrigation) 1,000 ml IRR ASDIRECTED PRN PRN Reason: delivery Terbutaline Sulfate (Brethine) 0.25 mg SUBCUT ASDIRECTED PRN PRN Reason: Tacysystole - Exam Wound/Incisions: Healing Well General: Alert, Oriented HEENT: Pupils Equal Neck: Supple Lungs: Clear to Auscultation, Normal Respiratory Effort Cardiovascular: Regular Rate, Regular Rhythm GI/Abdominal Exam: Normal Bowel Sounds, Soft, Non-Tender, No Organomegaly, No Distention, No Abnormal Bruit, No Mass, Pelvis Stable Extremities: Normal Inspection, Normal Range of Motion, Non-Tender, No Pedal Edema, Normal Capillary Refill Skin: Warm, Dry, Intact Neurological: No New Focal Deficit Psy/Mental Status: Alert, Normal Affect, Normal Mood Sepsis Event Note - Evaluation Sepsis Screening Result: No Definite Risk - Focused Exam Vital Signs: Vital Signs Temp Pulse Resp BP Pulse Ox 11/03/20 12:45 36.5 C 82 18 106/64 96 11/03/20 07:30 36.3 C 75 18 113/68 96 11/03/20 06:00 80 17 96 11/03/20 05:11 84 16 95 11/03/20 04:00 37.1 C 76 17 117/65 95 11/03/20 03:00 80 17 95 11/03/20 02:04 16 94 L - Problem List Review Problem List Initiated/Reviewed/Updated: Yes - My Orders Last 24 Hours: Active Orders 24 hr Category Date Time Status Patient Status [ADT] Routine ADT 11/02/20 20:49 Active Ambulate [RC] PER UNIT ROUTINE Care 11/02/20 20:49 Active Antiembolic Devices [RC] PER UNIT ROUTINE Care 11/02/20 20:50 Active Communication Order [RC] PER UNIT ROUTINE Care 11/02/20 20:49 Active Communication Order [RC] Per Unit Routine Care 11/02/20 20:49 Active May Shower [RC] ASDIRECTED Care 11/02/20 20:49 Active Notify Provider Intake and Out [RC] ASDIRECTED Care 11/02/20 20:52 Active Notify Provider Vital Signs [RC] ASDIRECTED Care 11/02/20 20:52 Active RT Incentive Spirometry [RC] Q2HWA Care 11/02/20 20:49 Active Acetaminophen/oxyCODONE [Percocet 325-5 MG] Med 11/02/20 20:46 Active 1 tab PO Q4H PRN Acetaminophen/oxyCODONE [Percocet 325-5 MG] Med 11/02/20 20:46 Active 2 tab PO Q4H PRN Docusate Sodium [Colace] Med 11/02/20 21:00 Active 100 mg PO BID Ibuprofen [Motrin] Med 11/04/20 03:00 Active 800 mg PO Q8H PRN Ketorolac [Toradol] Med 11/03/20 03:00 Active 30 mg IVPUSH Q6H Lactated Ringers [Ringers, Lactated] 1,000 ml Med 11/02/20 21:00 Active IV ASDIRECTED Lanolin [Lansinoh HPA] Med 11/02/20 20:46 Active See Dose Instructions TOP ASDIRECTED PRN Methylergonovine [Methergine] Med 11/02/20 20:46 Active 0.2 mg IM ONETIME PRN Ondansetron [Zofran] Med 11/02/20 20:46 Active 4 mg IVPUSH Q4H PRN Oxytocin [Pitocin] Med 11/02/20 20:46 Active 10 unit IM ASDIRECTED PRN Oxytocin/Lactated Ringers [Pitocin in LR 30 Units/500 Med 11/02/20 21:00 Active ML] 30 unit in 500 ml IV TITRATE Tranexamic Acid [Cyklokapron] 1,000 mg Med 11/02/20 20:46 Active Sodium Chloride 0.9% [Normal Saline] 100 ml IV ONETIME bisacodyL [Dulcolax] Med 11/02/20 20:46 Active 10 mg RECTAL ONETIME PRN diphenhydrAMINE [Benadryl] Med 11/02/20 20:46 Active 25 mg IVPUSH Q6H PRN miSOPROStoL [Cytotec] Med 11/02/20 20:46 Active 1,000 mcg RECTAL ONETIME PRN Assess Lochia [WOMSER] Per Unit Routine Oth 11/02/20 20:49 Ordered Assess Uterine Involution [WOMSER] Per Unit Routine Oth 11/02/20 20:49 Ordered Breast Pump [WOMSER] Per Unit Routine Oth 11/02/20 20:49 Ordered Peripheral IV Discontinue [OM.PC] Routine Oth 11/02/20 20:49 Ordered Sequential Compression Device [OM.PC] Per Unit Routine Oth 11/02/20 20:49 Ordered Resuscitation Status Routine Resus Stat 11/02/20 20:46 Ordered Medication Orders Bisacodyl (Dulcolax) 10 mg RECTAL ONETIME PRN PRN Reason: Constipation Diphenhydramine HCl (Benadryl) 25 mg IVPUSH Q6H PRN PRN Reason: Itching or Nausea Docusate Sodium (Colace) 100 mg PO BID [facility] Last Admin: 11/03/20 08:34 Dose: 100 mg Documented by: MANUEL Emollient Ointment (Lansinoh Hpa) 0 gm TOP ASDIRECTED PRN PRN Reason: Sore Nipples Lactated Ringer's (Ringers, Lactated) 1,000 mls @ 125 mls/hr IV ASDIRECTED [facility] Last Admin: 11/02/20 23:00 Dose: 125 mls/hr Documented by: JACQUELINE Oxytocin/Lactated Ringer's (Pitocin In Lr 30 Units/500 Ml) 30 unit in 500 mls @ 999 mls/hr IV TITRATE FRANCISCO; Protocol Tranexamic Acid 1,000 mg/ (Sodium Chloride) 110 mls @ 660 mls/hr IV ONETIME PRN PRN Reason: Bleeding Ibuprofen (Motrin) 800 mg PO Q8H PRN PRN Reason: mild pain or fever Ketorolac Tromethamine (Toradol) 30 mg IVPUSH Q6H FRANCISCO Stop: 11/03/20 21:01 Last Admin: 11/03/20 08:34 Dose: 30 mg Documented by: Admin: 11/03/20 02:30 Dose: 30 mg Documented by: JACQUELINE Methylergonovine Maleate (Methergine) 0.2 mg IM ONETIME PRN PRN Reason: Excessive Vaginal Bleeding Misoprostol (Cytotec) 1,000 mcg RECTAL ONETIME PRN PRN Reason: excessive bleeding Ondansetron HCl (Zofran) 4 mg IVPUSH Q4H PRN PRN Reason: Nausea/Vomiting Oxycodone/Acetaminophen (Percocet 325-5 Mg) 1 tab PO Q4H PRN PRN Reason: Pain (moderate 4-6) Oxycodone/Acetaminophen (Percocet 325-5 Mg) 2 tab PO Q4H PRN PRN Reason: Pain (moderate 4-6) Oxytocin (Pitocin) 10 unit IM ASDIRECTED PRN PRN Reason: Excessive Vaginal Bleeding - Assessment Assessment (Free Text/Narrative):: Status post section postoperative day #1 the patient is doing well ambulatory on regular diet and normal lochia and breast-feeding and voiding without any problem. - Plan Plan (Free Text/Narrative):: Planning to discharge the patient in a.m.
[2020-11-03] MEDS ORDERED: Ketorolac 30 MG/ML SDV ONE (23:08)
[2020-11-04] MEDS: Ibuprofen 800 MG Tab PO PRN ×3 (05:50→23:43)
--- NOTE | 2020-11-04 06:23 | PCM.DCSUM1 ---
Discharge Summary - Hospital Course Free Text/Narrative:: Niurka is a 30 yo PPD1 S/P primary LTCS due to failure to progress during IOL to term NBF at 39+5 weeks gestation. O pos, RI, GBS pos with adequate ampicillin prophylaxis prior to . Patient has no complaints or concerns at this time. Patient is breast feeding fairly well with support, resting comfortably in bed with in arms latched to left breast. Patient reports she is eating, hydrating, voiding, ambulating independently. Patient denies any problems or concerns at this time except fatigue and mild-moderate post- operative pain relieved with PO oxycodone and ibuprofen. Patient reports moderate vaginal bleeding with no clots. Low transverse incision MAIA dressing clean, dry, intact, small old blood noted. Desires to be discharged home today. Diagnosis: Stroke: No - Discharge Data Discharge Date: 11/04/20 Discharge Disposition: Home, Self-Care 01 Condition: Good - Referral to Home Health Primary Care Physician: PCP None - Discharge Diagnosis/Problem(s) (1) Status post primary low transverse section SNOMED Code(s): 480942325, [id number], [id number], [id number], [id number] ICD Code: Z98.891 - HISTORY OF UTERINE SCAR FROM PREVIOUS SURGERY Status: Acute Priority: High Current Visit: Yes (2) Lactating mother SNOMED Code(s): 779988215, [id number] ICD Code: Z39.1 - ENCOUNTER FOR CARE AND EXAMINATION OF LACTATING MOTHER Status: Acute Priority: High Current Visit: Yes - Patient Summary/Data Operative Procedure(s) Performed: Primary C/section. - Patient Instructions Diet: Usual Diet as Tolerated, Regular Diet as Tolerated, Drink 8-10+ Glasses/Day Activity: As Tolerated, No Strenuous Activities, Rest and Relax Today Driving: May Drive Today Showering/Bathing: May Shower Showering/Bathing, Other: May sitz bath for perineal comfort Wound/Incision Care: Keep Operative Site/Wound Site Clean and Dry, Do NOT Change Dressing Notify Provider of: Fever, Increased Pain, Swelling and Redness, Drainage, Nausea and/or Vomiting - Discharge Plan *PRESCRIPTION DRUG MONITORING PROGRAM REVIEWED*: No *COPY OF PRESCRIPTION DRUG MONITORING REPORT IN PATIENT EVE: No Prescriptions/Med Rec: Docusate Sodium [Colace] 100 mg PO BID #60 cap Ibuprofen [Motrin] 800 mg PO Q8H PRN #90 tablet PRN Reason: mild pain or fever Acetaminophen/oxyCODONE [Percocet 325-5 MG] 1 - 2 tab PO Q4H PRN #30 tablet PRN Reason: Pain (Severe 7-10) Home Medications: Home Meds Acetaminophen/oxyCODONE [Percocet 325-5 MG] 1 - 2 tab PO Q4H PRN #30 tablet 11/04/20 [Rx] Docusate Sodium [Colace] 100 mg PO BID #60 cap 11/04/20 [Rx] Ibuprofen [Motrin] 800 mg PO Q8H PRN #90 tablet 11/04/20 [Rx] Oxygen Therapy Mode: Room Air Referrals: [facility] [Outside] Amelia Fraser CNM, [employer] [Mid-] - 12/18/20 9:15 am (Your 6 week post appointment is on 12/18/20 at 9:15 am with Amelia. Masks are required.) Richmond Pabon MD [Physician] - 11/21/20 1:30 pm (Your 2 week post-op appointment is with Dr. Pabon on Tuesday11/21/20 at 1:30 pm. Masks are required.) - Discharge Summary/Plan Comment DC Time >30 min.: Yes Discharge Summary/Plan Comment: warning S/Ss, discussed. Leaving dressing intact until 2 week incision check. RTO in 2 weeks for incision check and MAIA dressing removal OR sooner if problems or concerns arise. - General Info Date of Service: 11/04/20 Admission Dx/Problem (Free Text: Patient Status Order with Admit Dx/Problem 11/01/20 23:49 Patient Status [ADT] Routine 11/02/20 01:48 Patient Status [ADT] Routine Admission Diagnosis/Problem Admission Diagnosis/Problem 11/02/20 07:52 Niurka is a 30 yo PPD0 S/P primary LTCS due to failure to progress during IOL to term NBF at 39+5 weeks gestation. O pos, RI, GBS pos with adequate ampicillin prophylaxis prior to . Patient has no complaints or concerns at this time. Patient is breast feeding well, resting comfortably in bed with in nursery. Patient reports she is eating independently; has not ambulated post-op, urinary catheter still in place. Patient denies any problems or concerns at this time except fatigue and mild-moderate post-operative pain relieved with ketorelac IV; plan to start PO pain regimen this evening. RN reports scant small vaginal bleeding with no clots. Low transverse incision MAIA dressing clean, dry, intact, scant old blood noted. 11/02/20 07:57 Functional Status: Reports: Pain Controlled, Tolerating Diet, Ambulating, Urinating - Review of Systems General: Reports: No Symptoms HEENT: Reports: No Symptoms Pulmonary: Reports: No Symptoms Cardiovascular: Reports: No Symptoms Gastrointestinal: Reports: No Symptoms Genitourinary: Reports: No Symptoms Musculoskeletal: Reports: No Symptoms Skin: Reports: No Symptoms Neurological: Reports: No Symptoms Psychiatric: Reports: No Symptoms - Patient Data Vitals - Most Recent: Last Vital Signs Temp 98.2 F 11/04/20 01:18 Pulse 78 11/04/20 04:00 Resp 18 11/04/20 04:00 BP 130/85 11/04/20 04:00 Pulse Ox 97 11/04/20 04:00 Weight - Most Recent: 233 lb I&O - Last 24 hours: Intake & Output 11/03/20 11/03/20 11/04/20 14:59 22:59 06:59 Output Total 2850 Balance -2850 Lab Results - Last 24 hrs: Laboratory Results - last 24 hr 11/03/20 Range/Units 05:30 Hgb 11.2 L (12.0-16.0) g/dL Hct 34.0 L (36.0-46.0) % Med Orders - Current: Current Medications Bisacodyl (Dulcolax) 10 mg RECTAL ONETIME PRN PRN Reason: Constipation Diphenhydramine HCl (Benadryl) 25 mg IVPUSH Q6H PRN PRN Reason: Itching or Nausea Docusate Sodium (Colace) 100 mg PO BID [facility] Last Admin: 11/03/20 23:05 Dose: 100 mg Documented by: Emollient Ointment (Lansinoh Hpa) 0 gm TOP ASDIRECTED PRN PRN Reason: Sore Nipples Lactated Ringer's (Ringers, Lactated) 1,000 mls @ 125 mls/hr IV ASDIRECTED [facility] Last Admin: 11/02/20 23:00 Dose: 125 mls/hr Documented by: Oxytocin/Lactated Ringer's (Pitocin In Lr 30 Units/500 Ml) 30 unit in 500 mls @ 999 mls/hr IV TITRATE [facility]; Protocol Tranexamic Acid 1,000 mg/ (Sodium Chloride) 110 mls @ 660 mls/hr IV ONETIME PRN PRN Reason: Bleeding Ibuprofen (Motrin) 800 mg PO Q8H PRN PRN Reason: mild pain or fever Last Admin: 11/04/20 05:50 Dose: 800 mg Documented by: Methylergonovine Maleate (Methergine) 0.2 mg IM ONETIME PRN PRN Reason: Excessive Vaginal Bleeding Misoprostol (Cytotec) 1,000 mcg RECTAL ONETIME PRN PRN Reason: excessive bleeding Ondansetron HCl (Zofran) 4 mg IVPUSH Q4H PRN PRN Reason: Nausea/Vomiting Oxycodone/Acetaminophen (Percocet 325-5 Mg) 1 tab PO Q4H PRN PRN Reason: Pain (moderate 4-6) Oxycodone/Acetaminophen (Percocet 325-5 Mg) 2 tab PO Q4H PRN PRN Reason: Pain (moderate 4-6) Oxytocin (Pitocin) 10 unit IM ASDIRECTED PRN PRN Reason: Excessive Vaginal Bleeding Discontinued Medications Acetaminophen (Tylenol Extra Strength) 1,000 mg PO ONETIME ONE Stop: 11/02/20 00:09 Last Admin: 11/02/20 00:19 Dose: 1,000 mg Documented by: Ampicillin Sodium (Ampicillin) Confirm Administered Dose 1 gm .ROUTE .STK-MED ONE Stop: 11/02/20 11:13 Bisacodyl (Dulcolax) 10 mg RECTAL ONETIME PRN PRN Reason: Constipation Bupivacaine HCl (Marcaine 0.5%) Confirm Administered Dose 30 ml .ROUTE .STK-MED ONE Stop: 11/02/20 18:31 Butorphanol Tartrate (Stadol) 1 mg IVPUSH Q1H PRN PRN Reason: Pain Last Admin: 11/02/20 07:02 Dose: 1 mg Documented by: Carboprost Tromethamine (Hemabate Ds) 250 mcg IM ASDIRECTED PRN PRN Reason: Post Hemorrhage Diphenhydramine HCl (Benadryl) 25 mg IVPUSH Q6H PRN PRN Reason: Itching or Nausea Docusate Sodium (Colace) 100 mg PO BID [facility] Emollient Ointment (Lansinoh Hpa) 0 gm TOP ASDIRECTED PRN PRN Reason: Sore Nipples Fentanyl (Sublimaze) Confirm Administered Dose 200 mcg .ROUTE .STK-MED ONE Stop: 11/02/20 08:04 Fentanyl (Sublimaze) Confirm Administered Dose 100 mcg .ROUTE .[facility] ONE Stop: 11/02/20 18:31 Lactated Ringer's (Ringers, Lactated) 1,000 mls @ 150 mls/hr IV ASDIRECTED [facility] Last Admin: 11/02/20 14:45 Dose: 150 mls/hr Documented by: Oxytocin/Sodium Chloride (Oxytocin 30 Unit/500 Ml-Ns) 30 unit in 500 mls @ 999 mls/hr IV TITRATE [facility] Tranexamic Acid 1,000 mg/ (Sodium Chloride) 110 mls @ 660 mls/hr IV ONETIME PRN PRN Reason: Bleeding Oxytocin/Sodium Chloride (Oxytocin 30 Unit/500 Ml-Ns) 30 unit in 500 mls @ 2 mls/hr IV TITRATE [facility]; Protocol Last Titration: 11/02/20 18:31 Dose: 0 munits/min, 0 mls/hr Documented by: Ampicillin Sodium 2 gm/ Sodium (Chloride) 100 mls @ 200 mls/hr IV ONETIME ONE Stop: 11/02/20 02:17 Last Admin: 11/02/20 02:51 Dose: 200 mls/hr Documented by: Ampicillin Sodium 1 gm/ Sodium (Chloride) 50 mls @ 100 mls/hr IV Q4H [facility] Last Admin: 11/02/20 06:55 Dose: 100 mls/hr Documented by: Ropivacaine (Naropin 0.2%) Confirm Administered Dose 0 mls @ as directed .ROUTE .ST-MED ONE Stop: 11/02/20 08:05 Ampicillin Sodium 1 gm/ Sodium (Chloride) 50 mls @ 100 mls/hr IV Q4H [facility] Last Admin: 11/02/20 19:05 Dose: 100 mls/hr Documented by: Ropivacaine (Naropin 0.2%) Confirm Administered Dose 100 mls @ as directed .ROUTE .[facility] ONE Stop: 11/02/20 18:27 Lactated Ringer's (Ringers, Lactated) 1,000 mls @ 125 mls/hr IV ASDIRECTED [facility] Tranexamic Acid 1,000 mg/ (Sodium Chloride) 110 mls @ 660 mls/hr IV ONETIME PRN PRN Reason: Bleeding Ibuprofen (Motrin) 800 mg PO Q8H PRN PRN Reason: mild pain or fever Ketorolac Tromethamine (Toradol) 30 mg IVPUSH Q6H [facility] Stop: 11/03/20 20:31 Ketorolac Tromethamine (Toradol) Confirm Administered Dose 30 mg .ROUTE .STK-MED ONE Stop: 11/02/20 20:30 Ketorolac Tromethamine (Toradol) 30 mg IVPUSH Q6H [facility] Stop: 11/03/20 21:01 Last Admin: 11/03/20 23:10 Dose: 30 mg Documented by: Ketorolac Tromethamine (Toradol) Confirm Administered Dose 30 mg .ROUTE .STK-MED ONE Stop: 11/03/20 23:09 Lidocaine HCl (Xylocaine 1%) 50 ml INJECT ONETIME PRN PRN Reason: Laceration repair Lidocaine HCl (Xylocaine 1%) Confirm Administered Dose 50 ml .ROUTE .STK-MED ONE Stop: 11/02/20 08:06 Methylergonovine Maleate (Methergine) 0.2 mg IM ASDIRECTED PRN PRN Reason: Post Hemorrhage Methylergonovine Maleate (Methergine) 0.2 mg IM ONETIME PRN PRN Reason: Excessive Vaginal Bleeding Misoprostol (Cytotec) 200 mcg PO ONETIME PRN PRN Reason: Post Hemorrhage Misoprostol (Cytotec) 25 mcg VAG ONETIME PRN PRN Reason: Cervical Ripening Last Admin: 11/02/20 03:31 Dose: 25 mcg Documented by: Misoprostol (Cytotec) 25 mcg VAG Q4H PRN PRN Reason: Cervical Ripening Misoprostol (Cytotec) 25 mcg PO ONETIME ONE Stop: 11/02/20 01:56 Last Admin: 11/02/20 03:31 Dose: 25 mcg Documented by: Misoprostol (Cytotec) 25 mcg PO Q4HR [facility] Misoprostol (Cytotec) 50 mcg PO ONETIME ONE Stop: 11/02/20 10:55 Misoprostol (Cytotec) 1,000 mcg RECTAL ONETIME PRN PRN Reason: excessive bleeding Morphine Sulfate (Duramorph Pf) Confirm Administered Dose 10 mg .ROUTE .[facility] ONE Stop: 11/02/20 20:02 Nalbuphine HCl (Nubain) 10 mg IVPUSH Q1H PRN PRN Reason: Pain (severe 7-10) Octyl Cyanoacrylate (Dermabond Advance) Confirm Administered Dose 1 applic .ROUTE .[facility] ONE Stop: 11/02/20 19:26 Ondansetron HCl (Zofran) 4 mg IVPUSH Q6H PRN PRN Reason: Nausea/Vomiting Ondansetron HCl (Zofran) Confirm Administered Dose 4 mg .ROUTE .[facility] ONE Stop: 11/02/20 19:31 Ondansetron HCl (Zofran) 4 mg IVPUSH Q4H PRN PRN Reason: Nausea/Vomiting Oxycodone/Acetaminophen (Percocet 325-5 Mg) 1 tab PO Q4H PRN PRN Reason: Pain (moderate 4-6) Oxycodone/Acetaminophen (Percocet 325-5 Mg) 2 tab PO Q4H PRN PRN Reason: Pain (moderate 4-6) Oxytocin (Pitocin) Confirm Administered Dose 10 unit .ROUTE .[facility] ONE Stop: 11/02/20 19:31 Oxytocin (Pitocin) 10 unit IM ASDIRECTED PRN PRN Reason: Excessive Vaginal Bleeding Sodium Chloride (Saline Flush) 10 ml FLUSH ASDIRECTED PRN PRN Reason: Keep Vein Open Sodium Chloride (Saline Flush) 2.5 ml FLUSH ASDIRECTED PRN PRN Reason: Keep Vein Open Sodium Chloride (Normal Saline) 10 ml IV ASDIRECTED PRN PRN Reason: IV Use Sterile Water (Sterile Water For Irrigation) 1,000 ml IRR ASDIRECTED PRN PRN Reason: delivery Terbutaline Sulfate (Brethine) 0.25 mg SUBCUT ASDIRECTED PRN PRN Reason: Tacysystole - Exam General: Reports: Alert, Oriented, Cooperative, No Acute Distress HEENT: Reports: Pupils Equal, Mucous Membr. Moist/[place] Neck: Reports: Supple Lungs: Reports: Clear to Auscultation, Normal Respiratory Effort Cardiovascular: Reports: Regular Rate, Regular Rhythm GI/Abdominal Exam: Normal Bowel Sounds, Soft, Non-Tender, No Organomegaly, No Distention, No Abnormal Bruit (Female) Exam: Normal External Exam, Enlarged Uterus ( uterus, firm U+1), Vaginal Bleeding (Moderate to heavy rubra lochia, no clots) Rectal (Female) Exam: Deferred Back Exam: Reports: Normal Inspection, Full Range of Motion Extremities: Normal Inspection, Normal Range of Motion, Non-Tender, No Pedal Edema, Normal Capillary Refill Skin: Reports: Warm, Dry, Intact Wound/Incisions: Reports: Dressing Dry and Intact, Drainage (Small old blood noted.) Neurological: Reports: No New Focal Deficit Psy/Mental Status: Reports: Alert, Normal Affect, Normal Mood
[2020-11-04] MEDS: Docusate Sodium 100 MG Cap PO SCH ×2 (11:39→21:37)
[2020-11-04] MEDS: Acetaminophen/oxyCODONE 325-5 MG Tab PO PRN ×2 (17:11→21:37)
[2020-11-05] MEDS: Acetaminophen/oxyCODONE 325-5 MG Tab PO PRN ×4 (03:42→17:42)
[2020-11-05] MEDS: Docusate Sodium 100 MG Cap PO SCH (08:19)
--- NOTE | 2020-11-05 09:11 | PCM.PNPP ---
- General Info Date of Service: 11/05/20 Functional Status: Reports: Pain Controlled - Review of Systems General: Reports: No Symptoms HEENT: Reports: No Symptoms Pulmonary: Reports: No Symptoms Cardiovascular: Reports: No Symptoms Gastrointestinal: Reports: No Symptoms Genitourinary: Reports: No Symptoms Musculoskeletal: Reports: No Symptoms Skin: Reports: No Symptoms Neurological: Reports: No Symptoms Psychiatric: Reports: No Symptoms - General Info Date of Service: 11/05/20 - Patient Data Vital Signs - Most Recent: Last Vital Signs Temp 36.3 C 11/05/20 08:17 Pulse 71 11/05/20 08:17 Resp 18 11/05/20 08:17 BP 123/69 11/05/20 08:17 Pulse Ox 98 11/05/20 08:17 Weight - Most Recent: 105.687 kg Med Orders - Current: Current Medications Bisacodyl (Dulcolax) 10 mg RECTAL ONETIME PRN PRN Reason: Constipation Diphenhydramine HCl (Benadryl) 25 mg IVPUSH Q6H PRN PRN Reason: Itching or Nausea Docusate Sodium (Colace) 100 mg PO BID [facility] Last Admin: 11/05/20 08:19 Dose: 100 mg Documented by: Emollient Ointment (Lansinoh Hpa) 0 gm TOP ASDIRECTED PRN PRN Reason: Sore Nipples Lactated Ringer's (Ringers, Lactated) 1,000 mls @ 125 mls/hr IV ASDIRECTED [facility] Last Admin: 11/02/20 23:00 Dose: 125 mls/hr Documented by: Oxytocin/Lactated Ringer's (Pitocin In Lr 30 Units/500 Ml) 30 unit in 500 mls @ 999 mls/hr IV TITRATE [facility]; Protocol Tranexamic Acid 1,000 mg/ (Sodium Chloride) 110 mls @ 660 mls/hr IV ONETIME PRN PRN Reason: Bleeding Ibuprofen (Motrin) 800 mg PO Q8H PRN PRN Reason: mild pain or fever Last Admin: 11/04/20 23:43 Dose: 800 mg Documented by: Methylergonovine Maleate (Methergine) 0.2 mg IM ONETIME PRN PRN Reason: Excessive Vaginal Bleeding Misoprostol (Cytotec) 1,000 mcg RECTAL ONETIME PRN PRN Reason: excessive bleeding Ondansetron HCl (Zofran) 4 mg IVPUSH Q4H PRN PRN Reason: Nausea/Vomiting Oxycodone/Acetaminophen (Percocet 325-5 Mg) 1 tab PO Q4H PRN PRN Reason: Pain (moderate 4-6) Last Admin: 11/05/20 08:19 Dose: 1 tab Documented by: Oxycodone/Acetaminophen (Percocet 325-5 Mg) 2 tab PO Q4H PRN PRN Reason: Pain (moderate 4-6) Oxytocin (Pitocin) 10 unit IM ASDIRECTED PRN PRN Reason: Excessive Vaginal Bleeding Discontinued Medications Acetaminophen (Tylenol Extra Strength) 1,000 mg PO ONETIME ONE Stop: 11/02/20 00:09 Last Admin: 11/02/20 00:19 Dose: 1,000 mg Documented by: Ampicillin Sodium (Ampicillin) Confirm Administered Dose 1 gm .ROUTE .STK-MED ONE Stop: 11/02/20 11:13 Bisacodyl (Dulcolax) 10 mg RECTAL ONETIME PRN PRN Reason: Constipation Bupivacaine HCl (Marcaine 0.5%) Confirm Administered Dose 30 ml .ROUTE .STK-MED ONE Stop: 11/02/20 18:31 Butorphanol Tartrate (Stadol) 1 mg IVPUSH Q1H PRN PRN Reason: Pain Last Admin: 11/02/20 07:02 Dose: 1 mg Documented by: Carboprost Tromethamine (Hemabate Ds) 250 mcg IM ASDIRECTED PRN PRN Reason: Post Hemorrhage Diphenhydramine HCl (Benadryl) 25 mg IVPUSH Q6H PRN PRN Reason: Itching or Nausea Docusate Sodium (Colace) 100 mg PO BID [facility] Emollient Ointment (Lansinoh Hpa) 0 gm TOP ASDIRECTED PRN PRN Reason: Sore Nipples Fentanyl (Sublimaze) Confirm Administered Dose 200 mcg .ROUTE .STK-MED ONE Stop: 11/02/20 08:04 Fentanyl (Sublimaze) Confirm Administered Dose 100 mcg .ROUTE .STK-MED ONE Stop: 11/02/20 18:31 Lactated Ringer's (Ringers, Lactated) 1,000 mls @ 150 mls/hr IV ASDIRECTED [facility] Last Admin: 11/02/20 14:45 Dose: 150 mls/hr Documented by: Oxytocin/Sodium Chloride (Oxytocin 30 Unit/500 Ml-Ns) 30 unit in 500 mls @ 999 mls/hr IV TITRATE [facility] Tranexamic Acid 1,000 mg/ (Sodium Chloride) 110 mls @ 660 mls/hr IV ONETIME PRN PRN Reason: Bleeding Oxytocin/Sodium Chloride (Oxytocin 30 Unit/500 Ml-Ns) 30 unit in 500 mls @ 2 mls/hr IV TITRATE [facility]; Protocol Last Titration: 11/02/20 18:31 Dose: 0 munits/min, 0 mls/hr Documented by: Ampicillin Sodium 2 gm/ Sodium (Chloride) 100 mls @ 200 mls/hr IV ONETIME ONE Stop: 11/02/20 02:17 Last Admin: 11/02/20 02:51 Dose: 200 mls/hr Documented by: Ampicillin Sodium 1 gm/ Sodium (Chloride) 50 mls @ 100 mls/hr IV Q4H [facility] Last Admin: 11/02/20 06:55 Dose: 100 mls/hr Documented by: Ropivacaine (Naropin 0.2%) Confirm Administered Dose 0 mls @ as directed .ROUTE .STK-MED ONE Stop: 11/02/20 08:05 Ampicillin Sodium 1 gm/ Sodium (Chloride) 50 mls @ 100 mls/hr IV Q4H [facility] Last Admin: 11/02/20 19:05 Dose: 100 mls/hr Documented by: Ropivacaine (Naropin 0.2%) Confirm Administered Dose 100 mls @ as directed .ROUTE .STK-MED ONE Stop: 11/02/20 18:27 Lactated Ringer's (Ringers, Lactated) 1,000 mls @ 125 mls/hr IV ASDIRECTED [facility] Tranexamic Acid 1,000 mg/ (Sodium Chloride) 110 mls @ 660 mls/hr IV ONETIME PRN PRN Reason: Bleeding Ibuprofen (Motrin) 800 mg PO Q8H PRN PRN Reason: mild pain or fever Ketorolac Tromethamine (Toradol) 30 mg IVPUSH Q6H [facility] Stop: 11/03/20 20:31 Ketorolac Tromethamine (Toradol) Confirm Administered Dose 30 mg .ROUTE .STK-MED ONE Stop: 11/02/20 20:30 Ketorolac Tromethamine (Toradol) 30 mg IVPUSH Q6H [facility] Stop: 11/03/20 21:01 Last Admin: 11/03/20 23:10 Dose: 30 mg Documented by: Ketorolac Tromethamine (Toradol) Confirm Administered Dose 30 mg .ROUTE .STK-MED ONE Stop: 11/03/20 23:09 Lidocaine HCl (Xylocaine 1%) 50 ml INJECT ONETIME PRN PRN Reason: Laceration repair Lidocaine HCl (Xylocaine 1%) Confirm Administered Dose 50 ml .ROUTE .STK-MED ONE Stop: 11/02/20 08:06 Methylergonovine Maleate (Methergine) 0.2 mg IM ASDIRECTED PRN PRN Reason: Post Hemorrhage Methylergonovine Maleate (Methergine) 0.2 mg IM ONETIME PRN PRN Reason: Excessive Vaginal Bleeding Misoprostol (Cytotec) 200 mcg PO ONETIME PRN PRN Reason: Post Hemorrhage Misoprostol (Cytotec) 25 mcg VAG ONETIME PRN PRN Reason: Cervical Ripening Last Admin: 11/02/20 03:31 Dose: 25 mcg Documented by: Misoprostol (Cytotec) 25 mcg VAG Q4H PRN PRN Reason: Cervical Ripening Misoprostol (Cytotec) 25 mcg PO ONETIME ONE Stop: 11/02/20 01:56 Last Admin: 11/02/20 03:31 Dose: 25 mcg Documented by: Misoprostol (Cytotec) 25 mcg PO Q4HR [facility] Misoprostol (Cytotec) 50 mcg PO ONETIME ONE Stop: 11/02/20 10:55 Misoprostol (Cytotec) 1,000 mcg RECTAL ONETIME PRN PRN Reason: excessive bleeding Morphine Sulfate (Duramorph Pf) Confirm Administered Dose 10 mg .ROUTE .STK-MED ONE Stop: 11/02/20 20:02 Nalbuphine HCl (Nubain) 10 mg IVPUSH Q1H PRN PRN Reason: Pain (severe 7-10) Octyl Cyanoacrylate (Dermabond Advance) Confirm Administered Dose 1 applic .ROUTE .STK-MED ONE Stop: 11/02/20 19:26 Ondansetron HCl (Zofran) 4 mg IVPUSH Q6H PRN PRN Reason: Nausea/Vomiting Ondansetron HCl (Zofran) Confirm Administered Dose 4 mg .ROUTE .STK-MED ONE Stop: 11/02/20 19:31 Ondansetron HCl (Zofran) 4 mg IVPUSH Q4H PRN PRN Reason: Nausea/Vomiting Oxycodone/Acetaminophen (Percocet 325-5 Mg) 1 tab PO Q4H PRN PRN Reason: Pain (moderate 4-6) Oxycodone/Acetaminophen (Percocet 325-5 Mg) 2 tab PO Q4H PRN PRN Reason: Pain (moderate 4-6) Oxytocin (Pitocin) Confirm Administered Dose 10 unit .ROUTE .STK-MED ONE Stop: 11/02/20 19:31 Oxytocin (Pitocin) 10 unit IM ASDIRECTED PRN PRN Reason: Excessive Vaginal Bleeding Sodium Chloride (Saline Flush) 10 ml FLUSH ASDIRECTED PRN PRN Reason: Keep Vein Open Sodium Chloride (Saline Flush) 2.5 ml FLUSH ASDIRECTED PRN PRN Reason: Keep Vein Open Sodium Chloride (Normal Saline) 10 ml IV ASDIRECTED PRN PRN Reason: IV Use Sterile Water (Sterile Water For Irrigation) 1,000 ml IRR ASDIRECTED PRN PRN Reason: delivery Terbutaline Sulfate (Brethine) 0.25 mg SUBCUT ASDIRECTED PRN PRN Reason: Tacysystole - Interaction Infant Disposition, : [place] to Nursery Interaction: Not Interacting Feeding: Breastfed ; Nursed Well, Continues to Breastfeed, Encouraged to Breastfeed Support Person: - Recovery Exam Fundal Tone: Firm Fundal Level: 1 Fingerbreadths Below Umbilicus Fundal Placement: Midline Lochia Amount: Small Lochia Color: Rubra/Red Perineum Description: Intact, Minimal Bruising/Swelling Episiotomy/Laceration: None Bladder Status: Voiding Urinary Elimination: Voided - Exam General: Alert, Oriented HEENT: Pupils Equal Neck: Supple Lungs: Clear to Auscultation, Normal Respiratory Effort Cardiovascular: Regular Rate, Regular Rhythm GI/Abdominal Exam: Normal Bowel Sounds, Soft, Non-Tender, No Organomegaly, No Distention, No Abnormal Bruit, No Mass, Pelvis Stable Extremities: Normal Inspection, Normal Range of Motion, Non-Tender, No Pedal Edema, Normal Capillary Refill Skin: Warm, Dry, Intact Wound/Incisions: Healing Well Neurological: No New Focal Deficit Psy/Mental Status: Alert, Normal Affect, Normal Mood - Problem List Review Problem List Initiated/Reviewed/Updated: Yes - Plan Plan:: Hemodynamically stable, afebrile. Hemoglobin 11.2, stable. Continue IV and subsequent PO analgesia as ordered. Continue EBFing, eating. Plan to ambulate with assistance today, d/c cardona catheter today after ambulation. Plan to ambulate 3-5 times daily. Continue with course of care S/P primary L TCS. Dr. Pabon notified and agreeable with POC.
[2020-11-05] MEDS: Ibuprofen 800 MG Tab PO PRN (12:37)
== END 2020-11-05 18:50 | disposition home or self-care (01) | DRG 787 ==
LOC: MW.OBCHECK 23:35 → MW.OB 23:36 → MW.OBCHECK 11-02 01:48 → OBSVTOIN 11-02 20:24 → MW.OB 11-03 05:08
PROVIDERS: ADMIT Obstetrics & Gynecology; ATTEND Obstetrics & Gynecology
PROC: 10D00Z1 Extraction of Products of Conception, Low, Open Approach (ICD-10-PCS; principal; 2020-11-02)
DX: O62.2 Other uterine inertia (principal); O98.82 Other maternal infectious and parasitic diseases complicating childbirth; Z3A.39 39 weeks gestation of pregnancy; Z37.0 Single live birth; B95.1 Streptococcus, group B, as the cause of diseases classified elsewhere; O77.0 Labor and delivery complicated by meconium in amniotic fluid; Z20.822 Contact with and (suspected) exposure to COVID-19
CPT/HCPCS: 01967; 01968; 36415; 59025; 81001; 84112; 85014; 85018; 85027; 86592; 86850; 86900; 86901; A9270-GY; J0290; J0595; J1885; J2001; J2270; J2405; J2590; J2795; J3010; J3490; J7120; U0002

== ENCOUNTER 2023-04-21 12:00 | Inpatient (IN) | payer SELFPAY ==
[2023-04-22] MEDS ORDERED: Sodium Chloride 0.9% 2.5 ML Syringe FLUSH PRN (10:24)
[2023-04-22] MEDS ORDERED: Misoprostol 200 MCG Tab PO PRN (10:24)
[2023-04-22] MEDS ORDERED: Lidocaine 1% 50 ML MDV INJECT PRN (10:24)
[2023-04-22] MEDS ORDERED: Citric Acid/Sodium Citrate Solution 30 ML Cup PO ONE (10:24)
[2023-04-22] MEDS ORDERED: Sodium Chloride 0.9% 20 ML SDV IV PRN (10:24)
[2023-04-22] MEDS ORDERED: Sodium Chloride 0.9% 10 ML Syringe FLUSH PRN (10:24)
[2023-04-22] MEDS ORDERED: Methylergonovine 0.2 MG/1 ML Amp IM PRN ×2 (10:24→12:48)
[2023-04-22] MEDS ORDERED: Butorphanol 1 MG/ML SDV IVPUSH PRN (10:24)
[2023-04-22] MEDS ORDERED: Water For Irrigation,Sterile 1,000 ML Container IRR PRN (10:24)
[2023-04-22] MEDS ORDERED: Tranexamic Acid 1,000 MG in Sodium Chloride 0.9% 100 ML IV PRN ×2 (10:24→12:48)
[2023-04-22] MEDS ORDERED: Carboprost Tromethamine 250 MCG/1 mL Vial IM PRN (10:24)
[2023-04-22] MEDS: Lactated Ringers 1,000 ML IV SCH ×2 (10:30→12:30)
[2023-04-22] MEDS ORDERED: Lactated Ringers 1,000 ML IV SCH ×2 (10:30→13:00)
[2023-04-22] MEDS ORDERED: Oxytocin/0.9 % Sodium Chloride 30 UNIT/500 ML BAG IV SCH (10:30)
[2023-04-22] MEDS ORDERED: ceFAZolin 2 GM in Sodium Chloride 0.9% 50 ML IV ONE (10:38)
[2023-04-22 10:57] LABS: HEMATOCRIT 37.9 % (36.0-46.0); HEMOGLOBIN 12.8 g/dL (12.0-16.0); MEAN CORPUSCULAR HEMOGLOBIN 29.7 pg (27.0-32.0); MEAN CORPUSCULAR HGB CONC 33.8 g/dL (31.0-37.0); MEAN CORPUSCULAR VOLUME 87.9 fL (80.0-98.0); MEAN PLATELET VOLUME 10.5 fL (7.40-12.00); RED BLOOD CELL COUNT 4.31 M/uL (4.30-5.90); WHITE BLOOD CELL COUNT,WBC 9.77 K/uL (4.0-11.0)
[2023-04-22] MEDS ORDERED: diphenhydrAMINE 50 MG/ML SDV IVPUSH PRN ×2 (11:03→12:48)
[2023-04-22] MEDS ORDERED: Ondansetron 4 MG/2 ML SDV IVPUSH PRN ×2 (11:03→12:48)
[2023-04-22] MEDS ORDERED: ePHEDrine 50 MG/ML SDV IVPUSH PRN (11:03)
[2023-04-22] MEDS ORDERED: Morphine PF 10 MG/10 ML SDV ONE (12:47)
[2023-04-22] MEDS ORDERED: Dexmedetomidine 200 MCG/2 ML SDV ONE (12:47)
[2023-04-22] MEDS ORDERED: Acetaminophen/oxyCODONE 325-5 MG Tab PO PRN (12:48)
[2023-04-22] MEDS ORDERED: Lanolin 100% Cream 7 GM Tube TOP PRN (12:48)
[2023-04-22] MEDS ORDERED: Oxytocin 10 Units/1 ML SDV IM PRN (12:48)
[2023-04-22] MEDS ORDERED: Misoprostol 200 MCG Tab RECTAL PRN (12:48)
[2023-04-22] MEDS ORDERED: Bisacodyl 10 MG Supp RECTAL PRN (12:48)
[2023-04-22] MEDS ORDERED: ceFAZolin 2 GM Vial ONE (13:14)
[2023-04-22] MEDS ORDERED: Oxytocin 10 Units/1 ML SDV ONE (13:19)
[2023-04-22] MEDS ORDERED: Phenylephrine HCl 0.5 MG/5 ML AMP ONE (13:31)
[2023-04-22] MEDS ORDERED: Ketorolac 30 MG/ML SDV ONE (13:34)
[2023-04-22] MEDS ORDERED: Ropivacaine 0.5% 5 MG/ML 30 ML SDV ONE (13:35)
[2023-04-22] MEDS ORDERED: Acetaminophen 500 MG Tab PO PRN (19:00)
[2023-04-22] MEDS: Ketorolac 30 MG/ML SDV IVPUSH SCH ×2 (19:55→21:02)
[2023-04-22] MEDS: Docusate Sodium 100 MG Cap PO SCH (21:24)
[2023-04-23] MEDS: Ketorolac 30 MG/ML SDV IVPUSH SCH ×2 (03:22→09:22)
[2023-04-23] MEDS: Acetaminophen 1,000 MG in Premix Bag 1 BAG IV PRN ×3 (03:24→15:25)
[2023-04-23 07:37] LABS: HEMATOCRIT 32.6 % (36.0-46.0)
[2023-04-23] MEDS: Docusate Sodium 100 MG Cap PO SCH ×2 (09:04→20:56)
[2023-04-23] MEDS ORDERED: Ketorolac 30 MG/ML SDV IVPUSH ONE (15:30)
[2023-04-23] MEDS: Ibuprofen 800 MG Tab PO PRN (20:56)
[2023-04-24] MEDS: Ibuprofen 800 MG Tab PO PRN (04:00)
[2023-04-24] MEDS: Acetaminophen/oxyCODONE 325-5 MG Tab PO PRN ×2 (05:59→11:12)
== END 2023-04-24 15:35 | disposition home or self-care (01) | DRG 788 ==
LOC: MW.OB 04-22 10:12 → OBSVTOIN 04-22 12:48 → MW.OB 04-22 12:48
PROVIDERS: ADMIT Obstetrics & Gynecology; ATTEND Obstetrics & Gynecology
PROC: 10D00Z1 Extraction of Products of Conception, Low, Open Approach (ICD-10-PCS; principal; 2023-04-22)
DX: O34.211 Maternal care for low transverse scar from previous cesarean delivery (principal); O24.420 Gestational diabetes mellitus in childbirth, diet controlled; O99.214 Obesity complicating childbirth; O77.0 Labor and delivery complicated by meconium in amniotic fluid; Z91.013 Allergy to seafood; Z97.3 Presence of spectacles and contact lenses; Z90.49 Acquired absence of other specified parts of digestive tract; Z98.890 Other specified postprocedural states; Z3A.39 39 weeks gestation of pregnancy; Z37.0 Single live birth
CPT/HCPCS: 01961; 36415; 59025; 64488; 85014; 85018; 85027; 86592; 86850; 86900; 86901; A9270-GY; J0131; J0690; J1885; J2274; J2370; J2590; J2795; J3490; J7120